=== PATIENT | male | born 1945 | race Caucasian/White ===

== ENCOUNTER 2018-09-29 07:48 | Inpatient (IN) ==
[2018-09-29] MEDS ORDERED: Ondansetron 4 MG/2 ML VIAL IVP ONE (07:52)
[2018-09-29] MEDS ORDERED: *HR* Morphine 2 MG/ML SYRINGE IVP ONE (07:52)
--- NOTE | 2018-09-29 07:58 | Emergency Department Note ---
Disposition Clinical Impression: CVA (cerebral vascular accident), Metastatic cancer, UTI (urinary tract infection), History of bladder cancer, Physical deconditioning Disposition: Admitted As Inpatient Condition: Fair Referrals: NONE,PCP [Primary Care Provider] - Forms: ED Satisfaction Letter Time of Disposition: 09:32 ( will admit) Fall HPI - General Chief Complaint: ED Fall Stated Complaint: fell out of bed Time Seen by Provider: 09/29/18 07:56 Source: EMS, other (care person at [facility]) Mode of arrival: EMS Limitations: physical limitation Nursing Notes Reviewed: Yes Vital Signs Reviewed: Yes - History of Present Illness HPI Narrative: 73-year-old male who was brought to the emergency department by EMS, after susta ining a fall at a [facility]. Patient was last seen normal at 6 AM, and then approximately 6:40 AM was found on the floor. Patient has known history of bladder cancer, and according to persons at [facility], is able to normally ambulate without difficulty. This morning patient was non-ambulatory, unable to speak, and unable to move his upper extremity. Patient appears to have clinically had a stroke. Patient per records is a DNR CC. He has no family. According to caregiver at the [facility], patient does not have this facial swelling, and he appears to have fallen out of bed and hit his oxygen tank, sustaining trauma to his right side of his face. There is marked swelling. Patient according to caregiver has advanced dementia. Over the last couple of weeks he has required more care. Pt Subjective Complaint: fall Onset (ago): Just [employer] Fall From: out of bed Fall Witnessed: no Place Fall Occurred: retirement/SNF Loss of Consciousness: unsure Symptoms Prior to Fall: none Context: other (Patient fell out of bed) Location of injury: head, face Location of injury - extremities: Right: shoulder Severity: moderate Associated symptoms (after fall): Reports: confusion - Related Data Home Medications Medication Instructions Recorded Confirmed Benzonatate [Tessalon] 100 mg PO BID PRN 07/06/17 09/29/18 Cholecalciferol (Vitamin D3) 2,000 unit PO DAILY 07/06/17 09/29/18 [Vitamin D] Cyanocobalamin (B-12) [Vitamin B12] 500 mcg PO DAILY 07/06/17 09/29/18 Docusate [Colace] 100 mg PO BID PRN 07/06/17 09/29/18 Donepezil [Aricept] 10 mg PO HS 07/06/17 09/29/18 Ipratropium/Albuterol Neb [Duoneb] 3 ml IH Q6HR 07/06/17 09/29/18 Perphenazine 4 mg PO BID 07/06/17 09/29/18 Simvastatin [Zocor] 40 mg PO HS 07/06/17 09/29/18 traZODone [TraZODone] 50 mg PO HS 07/06/17 09/29/18 Oxygen 1 each .ROUTE AD 03/01/18 09/29/18 Aspirin [Lo-Dose Aspirin EC] 81 mg PO DAILY 07/03/18 09/29/18 GuaiFENesin/Dextromethorphan 10 ml PO BID PRN 07/03/18 09/29/18 [Pecgen Dmx 125-15 mg/5 ml Liq] Tiotropium [Spiriva] 2 puff IH DAILY 07/03/18 09/29/18 Albuterol Neb [AccuNeb] 0.63 mg IH Q6H PRN 09/29/18 09/29/18 Calcium Carbonate [Antacid] 400 mg PO DAILY 09/29/18 09/29/18 Doxazosin Mesylate [Cardura] 2 mg PO HS 09/29/18 09/29/18 Oxycodone HCl/Acetaminophen 1 each PO Q4-6H PRN 09/29/18 09/29/18 [Percocet 5-325 mg Tablet] guaiFENesin [Guaifenesin] 400 mg PO Q8H PRN 09/29/18 09/29/18 Previous Rx's Medication Instructions Recorded Omeprazole [PriLOSEC] 20 mg PO BIDAC #30 cap 07/18/17 Ondansetron HCl [Zofran] 4 mg PO Q4H PRN #30 tablet 07/18/17 Prochlorperazine Maleate 10 mg PO Q6H PRN #30 tablet 07/18/17 [Compazine] Phenazopyridine [Pyridium] 100 mg PO TID #90 tablet 08/23/17 Ascorbate Calcium [Vitamin C] 1 tab PO DAILY #30 tablet 11/29/17 Ferrous Sulfate [Iron] 1 tab PO DAILY #30 tablet 11/29/17 Allergies Allergy/AdvReac Type Severity Reaction Status Date / Time No Known Allergies Allergy Verified 07/03/18 10:25 Limitations: ROS unobtainable due to patients medical condition (Patient is not able to speak, or follow commands.) Fall PMH - Past Medical History Medical history: Reports: cancer, COPD, dementia, hyperlipidemia, kidney stones, other Psychiatric history: Reports: schizophrenia - Social History Smoking Status: Former smoker Alcohol use: Reports: none Drug use: Reports: none Physical Exam - General Limitations: altered mental status, physical limitation General appearance: other (pt opens his left eye and looks , but not able to speak) - Head Head exam: atraumatic - Eye Eye exam: Present: other (left eye apperas to have drooping) - ENT ENT exam: other (Marked facial swelling localized to the right side of the face, around the temporomandibular joint) - Chest Chest inspection: Present: normal inspection - Respiratory Respiratory exam: Present: normal lung sounds bilaterally - Cardiovascular Cardiovascular exam: Present: regular rate, normal rhythm - Abdominal Exam Abdominal exam: Present: soft, Non-Tender - Extremities Exam Extremities exam: Present: normal inspection - Expanded Lower Extremity Exam Hip/Pelvis exam: Present: normal inspection. Absent: abrasion, deformity, dislocation - Neurological Exam Neurological exam: Present: other (Patient will moan and groan, he is opening up his eye, but difficult to understand) - Skin Skin exam: Present: warm, dry Course Vital Signs Temperature 97.9 F 09/29/18 07:50 Pulse Rate 90 09/29/18 07:50 Respiratory Rate 18 09/29/18 07:50 Blood Pressure 129/98 09/29/18 07:50 O2 Sat by Pulse Oximetry 96 09/29/18 07:50 Temperature 97.9 F 09/29/18 07:50 Pulse Rate 90 09/29/18 09:45 Respiratory Rate 18 09/29/18 09:45 Blood Pressure 137/91 09/29/18 09:45 O2 Sat by Pulse Oximetry 97 09/29/18 09:45 Oxygen Delivery Oxygen Delivery Room Air Fall - Lab Data Lab results reviewed: Yes I reviewed the patient's lab results. Lab results narrative: Elevated WBC count 13,000 urine analysis positive leukocyte and nitrites Result diagrams: 09/29/18 08:19 09/29/18 08:19 Lab Results 09/29/18 09/29/18 09/29/18 Range/Units 08:19 08:19 08:19 WBC 13.1 H (4.3-11.1) K/mcL RBC 3.65 L (4.19-5.50) M/mcL Hgb 11.2 L (12.9-16.9) g/dL Hct 36.4 L (37.5-50.1) % MCV 99.7 (83.0-100.0) fL MCH 30.7 (28.0-33.3) pg MCHC 30.8 L (31.6-35.5) g/dL RDW 13.2 (11.5-14.5) % Plt Count 249 (140-400) K/mcL MPV 11.2 (9.4-12.4) fL Immature Gran % 1.0 (0-4) % Seg Neutrophils % 90.4 % Lymphocytes % 2.4 % Monocytes % 5.9 % Eosinophils % 0.1 % Basophils % 0.2 % Neutrophils # 11.8 H (1.6-8.9) K/mcL Lymphocytes # 0.3 L (0.6-4.6) K/mcL Monocytes # 0.8 (0.0-1.3) K/mcL Eosinophils # 0.0 (0.0-0.6) K/mcL Basophils # 0.0 (0.0-0.2) K/mcL PT 14.2 H (9.4-12.1) Seconds INR 1.3 APTT 24.3 L (26.0-36.0) Seconds Sodium 141 (136-145) mEq/L Potassium 3.7 (3.5-5.1) mEq/L Chloride 97 L (98-107) mEq/L Carbon Dioxide 33 H (23-29) mEq/L BUN 19 (8-23) mg/dL Creatinine 0.93 (0.70-1.30) mg/dL Est GFR ( Amer) > 60 (> 60) Est GFR (Non-Af Amer) > 60 (> 60) BUN/Creatinine Ratio 20 (6-26) Glucose 142 H (70-105) mg/dL Calculated Osmolality 297 (280-300) Lactic Acid (0.5-2.2) mmol/L Calcium 9.0 (8.6-10.3) mg/dL Total Bilirubin 0.3 (0.3-1.0) mg/dL AST 104 H (13-39) Units/L ALT 54 H (7-52) Units/L Alkaline Phosphatase 103 (34-104) Units/L Troponin I (< 0.04) ng/mL Serum Total Protein 7.5 (6.4-8.9) g/dL Albumin 2.9 L (3.5-5.7) g/dL Globulin 4.6 H (2.4-3.5) g/dL Albumin/Globulin Ratio 0.6 L (1.1-2.2) Urine Color (Yellow) Urine Clarity (Clear) Urine pH (5.0-8.0) pH Units Ur Specific [place] (1.010-1.025) Urine Protein (Neg-Trace) mg/dL Urine Glucose (UA) (Normal) mg/dL Urine Ketones (Negative) mg/dL Urine Blood (Negative) Urine Nitrite (Negative) Urine Bilirubin (Negative) Urine Urobilinogen (Normal) mg/dL Ur Leukocyte Esterase (Negative) Urine Microscopic RBC (0-3) per hpf Urine Microscopic WBC (0-3) per hpf Ur Squamous Epith Cells (None-Few) per lpf Urine Bacteria (None-Few) per hpf Granular Casts (None Seen) per lpf 09/29/18 09/29/18 09/29/18 Range/Units 08:19 08:19 09:18 WBC (4.3-11.1) K/mcL RBC (4.19-5.50) M/mcL Hgb (12.9-16.9) g/dL Hct (37.5-50.1) % MCV (83.0-100.0) fL MCH (28.0-33.3) pg MCHC (31.6-35.5) g/dL RDW (11.5-14.5) % Plt Count (140-400) K/mcL MPV (9.4-12.4) fL Immature Gran % (0-4) % Seg Neutrophils % % Lymphocytes % % Monocytes % % Eosinophils % % Basophils % % Neutrophils # (1.6-8.9) K/mcL Lymphocytes # (0.6-4.6) K/mcL Monocytes # (0.0-1.3) K/mcL Eosinophils # (0.0-0.6) K/mcL Basophils # (0.0-0.2) K/mcL PT (9.4-12.1) Seconds INR APTT (26.0-36.0) Seconds Sodium (136-145) mEq/L Potassium (3.5-5.1) mEq/L Chloride (98-107) mEq/L Carbon Dioxide (23-29) mEq/L BUN (8-23) mg/dL Creatinine (0.70-1.30) mg/dL Est GFR ( Amer) (> 60) Est GFR (Non-Af Amer) (> 60) BUN/Creatinine Ratio (6-26) Glucose (70-105) mg/dL Calculated Osmolality (280-300) Lactic Acid 2.0 (0.5-2.2) mmol/L Calcium (8.6-10.3) mg/dL Total Bilirubin (0.3-1.0) mg/dL AST (13-39) Units/L ALT (7-52) Units/L Alkaline Phosphatase (34-104) Units/L Troponin I 0.03 (< 0.04) ng/mL Serum Total Protein (6.4-8.9) g/dL Albumin (3.5-5.7) g/dL Globulin (2.4-3.5) g/dL Albumin/Globulin Ratio (1.1-2.2) Urine Color Red A (Yellow) Urine Clarity Cloudy A (Clear) Urine pH 6.0 (5.0-8.0) pH Units Ur Specific [place] 1.015 (1.010-1.025) Urine Protein >=300 H (Neg-Trace) mg/dL Urine Glucose (UA) Normal (Normal) mg/dL Urine Ketones Negative (Negative) mg/dL Urine Blood Large H (Negative) Urine Nitrite Negative (Negative) Urine Bilirubin Small H (Negative) Urine Urobilinogen Normal (Normal) mg/dL Ur Leukocyte Esterase Small H (Negative) Urine Microscopic RBC 50-100 H (0-3) per hpf Urine Microscopic WBC 50-100 H (0-3) per hpf Ur Squamous Epith Cells Few (None-Few) per lpf Urine Bacteria Many H (None-Few) per hpf Granular Casts Moderate H (None Seen) per lpf - Radiology Data Radiology results reviewed: Yes I reviewed the patient's radiology results. CT of head without contrast, CT of the cervical spine without contrast, CT of the maxillofacial bones without contrast shows no acute abnormality. Chest x- ray shows metastatic disease, and x-ray of the pelvis is consistent with meta static disease. - EKG Data EKG attestation: Yes I reviewed and interpreted this EKG. EKG results narrative: EKG is normal sinus rhythm, rate of 88. EKG shows normal: sinus rhythm Rate: normal Rhythm: NSR [place]/QRS: normal
[2018-09-29 08:25] LABS: Basophils % 0.2 %; Eosinophils % 0.1 %; Hematocrit 36.4 % (37.5-50.1); Hemoglobin 11.2 g/dL (12.9-16.9); Lymphocytes # 0.3 K/mcL (0.6-4.6); Lymphocytes % 2.4 %; Mean Corpuscular HGB Conc 30.8 g/dL (31.6-35.5); Mean Corpuscular Hemoglobin 30.7 pg (28.0-33.3); Mean Corpuscular Volume 99.7 fL (83.0-100.0); Mean Platelet Volume 11.2 fL (9.4-12.4); Monocytes # 0.8 K/mcL (0.0-1.3); Monocytes % 5.9 %; Platelet Count 249 K/mcL (140-400); Red Blood Count 3.65 M/mcL (4.19-5.50); Red Cell Distribution Width 13.2 % (11.5-14.5); Segmented Neutrophils % 90.4 %
[2018-09-29 08:26] LABS: Neutrophils # 11.8 K/mcL (1.6-8.9)
[2018-09-29 08:33] LABS: INR 1.3; Prothrombin Time 14.2 Seconds (9.4-12.1)
[2018-09-29 08:36] LABS: Activated Partial Thrombo Time 24.3 Seconds (26.0-36.0)
[2018-09-29 09:14] LABS: Alanine Aminotransferase 54 Units/L (7-52); Albumin 2.9 g/dL (3.5-5.7); Albumin/Globulin Ratio 0.6 (1.1-2.2); Alkaline Phosphatase 103 Units/L (34-104); Aspartate Amino Transferase 104 Units/L (13-39); BUN/Creatinine Ratio 20 (6-26); Bilirubin,Total 0.3 mg/dL (0.3-1.0); Blood Urea Nitrogen 19 mg/dL (8-23); Carbon Dioxide 33 mEq/L (23-29); Chloride 97 mEq/L (98-107); Globulin 4.6 g/dL (2.4-3.5); Glucose 142 mg/dL (70-105); Osmolality,Calculated 297 (280-300); Potassium 3.7 mEq/L (3.5-5.1); Sodium 141 mEq/L (136-145); Total Protein 7.5 g/dL (6.4-8.9); eGFR For Non-African Americans > 60 (> 60)
[2018-09-29] MEDS ORDERED: Naloxone 0.4 MG/ML INJ IVP PRN ×2 (09:28→10:01)
[2018-09-29 09:37] LABS: Bilirubin,Urine Small (Negative); Blood,Urine Large (Negative); Clarity,Urine Cloudy (Clear); Color,Urine Red (Yellow); Glucose,Urine (UA) Normal (Normal); Ketones,Urine Negative (Negative); Specific Gravity,Urine 1.015 (1.010-1.025)
[2018-09-29 09:38] LABS: Leukocyte Esterase,Urine Small (Negative); Nitrite,Urine Negative (Negative); Protein,Urine >=300 mg/dL (Neg-Trace); Urobilinogen,Urine Normal (Normal)
[2018-09-29 09:42] LABS: Bacteria,Urine Many per hpf (None-Few); Granular Casts,Urine Moderate per lpf (None Seen); RBC,Urine 50-100 per hpf (0-3); Squamous Epithelial Cell,Urine Few per lpf (None-Few); WBC,Urine 50-100 per hpf (0-3)
[2018-09-29] MEDS ORDERED: GuaiFENesin Liq 200 MG/10 ML UDC PO PRN (10:01)
[2018-09-29] MEDS ORDERED: NON-FORMULARY MEDICATION 1 EACH EACH (Oxygen [Oxygen] 1 EACH) SCH (10:01)
[2018-09-29] MEDS ORDERED: Benzonatate 100 MG CAPSULE PO PRN (10:01)
[2018-09-29] MEDS ORDERED: *HR* OxyCODONE/APAP 5/325 TABLET PO PRN (10:01)
[2018-09-29] MEDS ORDERED: Albuterol 2.5 MG/3 ML NEBULIZER IH PRN (10:01)
[2018-09-29] MEDS ORDERED: Ondansetron ODT 4 MG TAB.RAPDIS PO PRN (10:01)
--- NOTE | 2018-09-29 15:35 | Internal Med History&Physical ---
Date of Encounter: 09/29/18 Time of Encounter: 14:45 Assessment and Plan (1) Acute focal neurological deficit Current visit: Yes Status: Acute New onset right facial weakness with significant right arm or leg involvement. Left arm weakness. MRI of brain and shoulders will be done to further evaluate. (2) Elevated transaminase level Current visit: Yes Status: Acute Duration unknown. Not present on November 2017 labs. Continue to monitor. (3) Anemia Current visit: Yes Status: Acute Present on most labs since January 2017. Anemia testing will be done. Qualifiers: Anemia type: unspecified type Qualified Code(s): D64.9 - Anemia, unspecified (4) Bladder cancer Current visit: No Status: Acute No further workup or treatment plan. Qualifiers: Bladder location: anterior wall Qualified Code(s): C67.3 - Malignant neoplasm of anterior wall of bladder (5) Fall Current visit: No Status: Acute Etiology unknown. MRI of head will be done as per above. Qualifiers: Encounter type: initial encounter Qualified Code(s): W19.XXXA - Unspecified fall, initial encounter (6) DM type 2 (diabetes mellitus, type 2) Current visit: Yes Status: Acute History of borderline DM 2 per halfway caregiver. Hemoglobin A1c will be checked. Qualifiers: Diabetes mellitus space officer insulin use: without custodial use Diabetes mellitus complication status: without complication Qualified Code(s): E11.9 - Type 2 diabetes mellitus without complications (7) Conjunctivitis Current visit: Yes Status: Acute TobraDex eyedrops will be ordered. Qualifiers: Conjunctivitis type: unspecified Laterality: bilateral Qualified Code(s): H10.9 - Unspecified conjunctivitis (8) Neutrophilic leukocytosis Current visit: Yes Status: Acute Suspect UTI. Urine culture will be sent and Rocephin will be started. Internal Medicine - H&P: HPI Chief complaint: Fall Admitted From: Emergency Dept Plans for Post Hospital Care: Home History of present illness: Mr. Pastrana is a 73 year old male who was sent to emergency room after staff at the halfway found him lying prone on the floor with right face down approximately 0630 today. He had been last seen in bed at approximately 0345. The fall was unwitnessed. He cannot give any reliable history. He was brought to emergency room and [facility]. He was on hospice because of metastatic bladder cancer. Hospice was revoked and he was evaluated and admitted to [facility] floor for ongoing care needs. He has diagnoses of dementia and schizophrenia and cannot give reliable history. He answers a few questions with short answers. He does not know his age, location, or reason for being at the hospital. He has no known history of strokes or seizures. He has had occasional transient "drooping" of his left face observed at the halfway. He has been evaluated for this by staff at the [place] according to his halfway caregiver. Head CT in emergency room showed periventricular white matter microvascular ischemic changes and a small old right basal ganglia lacunar infarct. Past Med Surg Social Fam HX - Past Medical History Medical history: cancer, COPD, dementia, hyperlipidemia, kidney stones, other Additional medical history: peripheral vascular disease. prostatic hypertrophy. cholelithiasis. dysphagia Psychiatric history: schizophrenia - Past Surgical History Additional surgical history: port. bladder - Social History Smoking Status: Former smoker Smokeless Tobacco Status: No Alcohol use: none Drug use: none - Family History Mother History Unknown: Yes Internal Medicine - H&P: Meds Benzonatate [Tessalon] 100 mg PO BID PRN 07/06/17 [History] Cholecalciferol (Vitamin D3) [Vitamin D] 2,000 unit PO DAILY 07/06/17 [History] Cyanocobalamin (B-12) [Vitamin B12] 500 mcg PO DAILY 07/06/17 [History] Docusate [Colace] 100 mg PO BID PRN 07/06/17 [History] Donepezil [Aricept] 10 mg PO HS 07/06/17 [History] Ipratropium/Albuterol Neb [Duoneb] 3 ml IH Q6HR 07/06/17 [History] Perphenazine 4 mg PO BID 07/06/17 [History] Simvastatin [Zocor] 40 mg PO HS 07/06/17 [History] traZODone [TraZODone] 50 mg PO HS 07/06/17 [History] Omeprazole [PriLOSEC] 20 mg PO BIDAC #30 cap 07/18/17 [Rx] Ondansetron HCl [Zofran] 4 mg PO Q4H PRN #30 tablet 07/18/17 [Rx] Prochlorperazine Maleate [Compazine] 10 mg PO Q6H PRN #30 tablet 07/18/17 [Rx] Phenazopyridine [Pyridium] 100 mg PO TID #90 tablet 08/23/17 [Rx] Ascorbate Calcium [Vitamin C] 1 tab PO DAILY #30 tablet 11/29/17 [Rx] Ferrous Sulfate [Iron] 1 tab PO DAILY #30 tablet 11/29/17 [Rx] Oxygen 1 each .ROUTE AD 03/01/18 [History] Aspirin [Lo-Dose Aspirin EC] 81 mg PO DAILY 07/03/18 [History] GuaiFENesin/Dextromethorphan [Pecgen Dmx 125-15 mg/5 ml Liq] 10 ml PO BID PRN 07/03/18 [History] Tiotropium [Spiriva] 2 puff IH DAILY 07/03/18 [History] Albuterol Neb [Proventil Neb] 2.5 mg IH Q6H PRN 09/29/18 [History] Calcium Carbonate [Antacid] 400 mg PO DAILY 09/29/18 [History] Doxazosin Mesylate [Cardura] 2 mg PO HS 09/29/18 [History] Oxycodone HCl/Acetaminophen [Percocet 5-325 mg Tablet] 1 each PO Q4-6H PRN 09/29/18 [History] guaiFENesin [Guaifenesin] 400 mg PO Q8H PRN 09/29/18 [History] Allergy/AdvReac Type Severity Reaction Status Date / Time No Known Allergies Allergy Verified 07/03/18 10:25 All Systems PM: A 10-system review of systems was performed and is negative for pertinent findings except as documented above in the HPI. Review of systems: Review of systems is obtained from old records and a caregiver at the halfway. Gen.: His weight has decreased from 84.2 kg on 02/10/2017 to 74.559 kg at present. Cardiovascular: He has history of [place] and heart failure. There is no known DVT or pulmonary embolus. Respiratory: He has diagnoses of COPD. He has not smoked in several years. He does not use home oxygen. GI: There is no known disorder of his liver gallbladder or exocrine pancreas : He was diagnosed with bladder cancer in 2016. He received chemotherapy July to October 2017. He was found later 2017 to have pulmonary metastases. He was placed on hospice approximately July 2018. He has no known disorders of his kidneys or prostate otherwise. Neurologic: As per history of present illness Endocrine: He has borderline diabetes. There is no known thyroid disease or hyperlipidemia Hematology/oncology: He had bladder cancer as per above. He has anemia. Psychiatric: He has diagnosis of schizophrenia. [place] skeletal: He has no significant DJD and no known gout. - Constitutional Vitals: Temp Pulse Resp BP Pulse Ox 98.9 F 107 20 109/78 93 09/29/18 14:04 09/29/18 14:37 09/29/18 14:04 09/29/18 14:37 09/29/18 14:37 Exam: Gen.: He is a well-developed well-nourished male lying in bed who appears in no significant distress HEENT: Head shows noticeable swelling of his right face without obvious contusion/laceration. Eyes: He has bilateral conjunctival erythema with slight mucopurulent drainage. EOMI. Mouth: Mucosa is moist. Neck: There is no thyromegaly or adenopathy noted. Heart: Regular without murmurs gallops or ectopics Lungs: No wheezes or crackles are heard. Abdomen: Soft and nontender. No masses or guarding are noted. Extremities: There is no cyanosis edema or clubbing noted. Dorsalis pedis and posttibial pulses are trace palpable bilaterally. Neurologic: Mental status: He answers a few questions but cannot give reliable significant past medical history. Cranial nerves: The right forehead shows minimal movement on upward gaze. The left forehead has more visible movement. He has significant flattening of right nasolabial fold with right facial droop and superimposed edema. Tongue protrudes midline. EOMI. Motor: He cannot outstretch or pronate his left arm well. The right arm pronates in outstretch position satisfactorily. He withdraws his feet equally well to plantar stimulation. Ankle flexion and extension strength against resistance is 2 over 2 bilaterally symmetric. Cerebellar: Finger to nose is intact with the right hand. He does not attempt with the left hand. Skin: Warm and dry Internal Med - H&P Results - Labs CBC & Chem 7: 09/29/18 08:19 09/29/18 08:19 Labs: Short CBC 09/29/18 Range/Units 08: WBC 13.1 H (4.3-11.1) K/mcL Hgb 11.2 L (12.9-16.9) g/dL Hct 36.4 L (37.5-50.1) % Plt Count 249 (140-400) K/mcL Neutrophils # 11.8 H (1.6-8.9) K/mcL BMP 09/29/18 08:19 Sodium 141 Potassium 3.7 Chloride 97 L Carbon Dioxide 33 H BUN 19 Creatinine 0.93 Glucose 142 H Calcium 9.0 Cardiac Enzymes 09/29/18 Range/Units 08:19 Troponin I 0.03 (< 0.04) ng/mL Liver Function 09/29/18 Range/Units 08:19 Total Bilirubin 0.3 (0.3-1.0) mg/dL AST 104 H (13-39) Units/L ALT 54 H (7-52) Units/L Alkaline Phosphatase 103 (34-104) Units/L Albumin 2.9 L (3.5-5.7) g/dL Urine 09/29/18 Range/Units 09:18 Urine Color Red A (Yellow) Urine Clarity Cloudy A (Clear) Urine pH 6.0 (5.0-8.0) pH Units Ur Specific [place] 1.015 (1.010-1.025) Urine Protein >=300 H (Neg-Trace) mg/dL Urine Glucose (UA) Normal (Normal) mg/dL - Impressions ITS Impressions Cervical Spine CT 09/29/18 07:52 IMPRESSION: No acute intracranial abnormality. Right lateral facial soft tissue swelling. No acute traumatic injury of the facial bones. No acute abnormality in the cervical spine. Lung nodules measuring up to 6 mm at the lung apices. Follow-up recommendation is listed below. RECOMMENDATIONS: Fleischner Society guidelines for follow-up and management of incidentally detected pulmonary nodules: Multiple Solid Nodules: Nodule size equals 6-8 mm In a low-risk patient, CT at 3-6 months, then consider CT at 18-24 months. In a high-risk patient, CT at 3-6 months, then CT at 18-24 months. - Low risk patients include individuals with minimal or absent history of smoking and other known risk factors. - High risk patients include individuals with a history or smoking or known risk factors. Radiology 2017 http://pubs.rsna.org/doi/full/10.1148/radiol.[email or web address] D/ / Rishabh Llamas MD / Rishabh Llamas MD Interpreting Provider: Rishabh Llamas MD Chest X-Ray 09/29/18 07:52 IMPRESSION: Normal x-ray of the pelvis. Multiple rounded masses which appear to have increased in size from prior CT scan done June 15, 2018 consistent with diffuse metastatic disease. D/ / Rolando Bennett MD / Rolando Bennett MD Interpreting Provider: Rolando Bennett MD Head CT 09/29/18 07:52 IMPRESSION: No acute intracranial abnormality. Right lateral facial soft tissue swelling. No acute traumatic injury of the facial bones. No acute abnormality in the cervical spine. Lung nodules measuring up to 6 mm at the lung apices. Follow-up recommendation is listed below. RECOMMENDATIONS: Fleischner Society guidelines for follow-up and management of incidentally detected pulmonary nodules: Multiple Solid Nodules: Nodule size equals 6-8 mm In a low-risk patient, CT at 3-6 months, then consider CT at 18-24 months. In a high-risk patient, CT at 3-6 months, then CT at 18-24 months. - Low risk patients include individuals with minimal or absent history of smoking and other known risk factors. - High risk patients include individuals with a history or smoking or known risk factors. Radiology 2017 http://pubs.rsna.org/doi/full/10.1148/radiol.[email or web address] D/ / Rishabh Llamas MD / Rishabh Llamas MD Interpreting Provider: Rishabh Llamas MD Pelvis X-Ray 09/29/18 07:52 IMPRESSION: Normal x-ray of the pelvis. Multiple rounded masses which appear to have increased in size from prior CT scan done June 15, 2018 consistent with diffuse metastatic disease. D/ / Rolando Bennett MD / Rolando Bennett MD Interpreting Provider: Rolando Bennett MD Face CT 09/29/18 08:03 IMPRESSION: No acute intracranial abnormality. Right lateral facial soft tissue swelling. No acute traumatic injury of the facial bones. No acute abnormality in the cervical spine. Lung nodules measuring up to 6 mm at the lung apices. Follow-up recommendation is listed below. RECOMMENDATIONS: Fleischner Society guidelines for follow-up and management of incidentally detected pulmonary nodules: Multiple Solid Nodules: Nodule size equals 6-8 mm In a low-risk patient, CT at 3-6 months, then consider CT at 18-24 months. In a high-risk patient, CT at 3-6 months, then CT at 18-24 months. - Low risk patients include individuals with minimal or absent history of smoking and other known risk factors. - High risk patients include individuals with a history or smoking or known risk factors. Radiology 2017 http://pubs.rsna.org/doi/full/10.1148/radiol.[email or web address] D/ / Rishabh Llamas MD / Rishabh Llamas MD Interpreting Provider: Rishabh Llamas MD
[2018-09-29] MEDS: Ipratropium/Albuterol Neb 3 ML IH SCH ×2 (16:04→22:25)
[2018-09-29] MEDS: cefTRIAXone 1,000 MG in Water for inj. (sterile) 20 ML 10 ML IVP SCH (16:54)
[2018-09-29] MEDS: Tobramycin/Dex Opth DROPS 2.5 ML BOTTLE LEFT EYE SCH (16:57)
[2018-09-29] MEDS: Tobramycin/Dex Opth DROPS 2.5 ML BOTTLE RIGHT EYE SCH (16:57)
[2018-09-29] MEDS: Lactobacillus 1 EACH CAP.SPRINK PO SCH (20:11)
[2018-09-29] MEDS: Perphenazine 2 MG TABLET PO SCH ×2 (20:12→20:24)
[2018-09-29] MEDS: Clotrimazole 1% CRM 15 GM TUBE TP SCH (20:12)
[2018-09-29] MEDS: traZODone 50 MG TABLET PO SCH (20:12)
[2018-09-30] MEDS: Tobramycin/Dex Opth DROPS 2.5 ML BOTTLE LEFT EYE SCH ×4 (00:31→23:57)
[2018-09-30] MEDS: Tobramycin/Dex Opth DROPS 2.5 ML BOTTLE RIGHT EYE SCH ×4 (00:31→23:57)
[2018-09-30] MEDS: Ipratropium/Albuterol Neb 3 ML IH SCH ×4 (04:45→22:01)
[2018-09-30 05:42] LABS: Basophils % 0.3 %; Eosinophils % 0.1 %; Hematocrit 40.2 % (37.5-50.1); Immature Granulocytes % 0.7 % (0-4); Lymphocytes # 0.6 K/mcL (0.6-4.6); Lymphocytes % 4.6 %; Mean Corpuscular HGB Conc 29.9 g/dL (31.6-35.5); Mean Corpuscular Hemoglobin 30.1 pg (28.0-33.3); Mean Corpuscular Volume 100.8 fL (83.0-100.0); Mean Platelet Volume 11.7 fL (9.4-12.4); Monocytes % 8.1 %; Neutrophils # 10.8 K/mcL (1.6-8.9); Platelet Count 272 K/mcL (140-400); Red Blood Count 3.99 M/mcL (4.19-5.50); Red Cell Distribution Width 13.5 % (11.5-14.5); Segmented Neutrophils % 86.2 %
[2018-09-30 06:10] LABS: Alanine Aminotransferase 68 Units/L (7-52); Albumin 2.8 g/dL (3.5-5.7); Albumin/Globulin Ratio 0.6 (1.1-2.2); Alkaline Phosphatase 109 Units/L (34-104); Aspartate Amino Transferase 133 Units/L (13-39); BUN/Creatinine Ratio 19 (6-26); Bilirubin,Total 0.3 mg/dL (0.3-1.0); Blood Urea Nitrogen 21 mg/dL (8-23); Calcium 9.1 mg/dL (8.6-10.3); Carbon Dioxide 35 mEq/L (23-29); Chloride 100 mEq/L (98-107); Globulin 4.5 g/dL (2.4-3.5); Glucose 137 mg/dL (70-105); Osmolality,Calculated 301 (280-300); Potassium 4.1 mEq/L (3.5-5.1); Sodium 143 mEq/L (136-145); Total Protein 7.3 g/dL (6.4-8.9); eGFR For Non-African Americans > 60 (> 60)
[2018-09-30] MEDS: Lactobacillus 1 EACH CAP.SPRINK PO SCH ×2 (09:03→20:50)
[2018-09-30] MEDS: Cyanocobalamin (B-12) 1,000 MCG TABLET PO SCH (09:04)
[2018-09-30] MEDS: Perphenazine 2 MG TABLET PO SCH ×2 (09:06→20:48)
[2018-09-30] MEDS: Cholecalciferol (D-3) 1,000 UNIT TABLET PO SCH (09:09)
[2018-09-30] MEDS: Aspirin Enteric Coated 81 MG Tablet PO SCH (09:12)
[2018-09-30] MEDS: Ascorbic Acid 500 MG TABLET PO SCH (09:12)
[2018-09-30 09:29] LABS: % Iron Saturation 9 % (20-55); Iron 19 mcg/dL (65-175); Transferrin 149 mg/dL (203-362)
[2018-09-30 09:37] LABS: Estimated Average Glucose 148 mg/dl; Hemoglobin A1C 6.8 %
[2018-09-30 09:47] LABS: Ferritin 1266 ng/mL (20-250)
[2018-09-30] MEDS: Clotrimazole 1% CRM 15 GM TUBE TP SCH ×2 (09:47→20:54)
[2018-09-30 09:53] LABS: Folate 5.4 ng/mL (3.0-16.0)
[2018-09-30] MEDS: Tiotropium 18 MCG inhalation IH SCH (10:02)
--- NOTE | 2018-09-30 10:06 | Internal Med Progress Note ---
Date of Encounter: 09/30/18 Time of Encounter: 09:55 - Assessment and plan (1) Acute focal neurological deficit Current Visit: Yes Status: Acute Assessment and plan: September 30. Unchanged right facial weakness with left arm weakness. MRI of brain and shoulders has been ordered and will be done 10/01/2018. (2) Elevated transaminase level Current Visit: Yes Status: Acute Assessment and plan: September 30. Slight increase in LFTs noted. (3) Anemia Current Visit: Yes Status: Acute Assessment and plan: September 30. Hemoglobin has increased to 12.0. Question if hemoconcentration effect. Anemia testing shows iron 19, transferrin saturation 9%, transferrin 149, ferritin 1266, B12 635, and folate 5.4. Qualifiers: Anemia type: unspecified type Qualified Code(s): D64.9 - Anemia, unspe cified (4) Bladder cancer Current Visit: No Status: Acute Assessment and plan: September 30. No further workup or treatment planned Qualifiers: Bladder location: anterior wall Qualified Code(s): C67.3 - Malignant neoplasm of anterior wall of bladder (5) Fall Current Visit: No Status: Acute Assessment and plan: September 30. MRI of head pending. Qualifiers: Encounter type: initial encounter Qualified Code(s): W19.XXXA - Unspecified fall, initial encounter (6) DM type 2 (diabetes mellitus, type 2) Current Visit: Yes Status: Acute Assessment and plan: September 30. Hemoglobin A1c 6.8%. Continue Accu-Cheks with SSI. 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 Improved. Continue TobraDex. Qualifiers: Conjunctivitis type: unspecified Laterality: bilateral Qualified Code(s): H10.9 - Unspecified conjunctivitis (8) Neutrophilic leukocytosis Current Visit: Yes Status: Acute Assessment and plan: September 30. WBC decreased and left shift on differential lessened. Continue Rocephin and lactobacillus. - Subjective Interval history: September 30. No new problems have arisen. - Constitutional Vitals: Temp Pulse Resp BP Pulse Ox 98.9 F 117 26 121/76 95 09/30/18 06:21 09/30/18 06:21 09/30/18 06:21 09/30/18 06:21 09/30/18 06:21 Exam: He is lying in bed and appears in no acute distress. The right facial edema and droop appear unchanged from yesterday. 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 The right arm performs finger to nose testing accurately. He answers a few questions with short answers. I reviewed his medications and lab results. Internal Medicine: Result - Labs CBC & Chem 7: 09/30/18 05:00 09/30/18 05:00 Labs: Short CBC 09/30/18 Range/Units 05:00 WBC 12.5 H (4.3-11.1) K/mcL Hgb 12.0 L (12.9-16.9) g/dL Hct 40.2 (37.5-50.1) % Plt Count 272 (140-400) K/mcL Neutrophils # 10.8 H (1.6-8.9) K/mcL BMP 09/30/18 05:00 Sodium 143 Potassium 4.1 Chloride 100 Carbon Dioxide 35 H BUN 21 Creatinine 1.08 Glucose 137 H Calcium 9.1 Liver Function 09/30/18 Range/Units 05:00 Total Bilirubin 0.3 (0.3-1.0) mg/dL AST 133 H (13-39) Units/L ALT 68 H (7-52) Units/L Alkaline Phosphatase 109 H (34-104) Units/L Albumin 2.8 L (3.5-5.7) g/dL - ABG Interpretation ABG results: PT/INR, D-dimer PT 14.2 Seconds (9.4-12.1) H 09/29/18 08:19 - Impressions Impressions Cervical Spine CT 09/29/18 07:52 IMPRESSION: No acute intracranial abnormality. Right lateral facial soft tissue swelling. No acute traumatic injury of the facial bones. No acute abnormality in the cervical spine. Lung nodules measuring up to 6 mm at the lung apices. Follow-up recommendation is listed below. RECOMMENDATIONS: Fleischner Society guidelines for follow-up and management of incidentally detected pulmonary nodules: Multiple Solid Nodules: Nodule size equals 6-8 mm In a low-risk patient, CT at 3-6 months, then consider CT at 18-24 months. In a high-risk patient, CT at 3-6 months, then CT at 18-24 months. - Low risk patients include individuals with minimal or absent history of smoking and other known risk factors. - High risk patients include individuals with a history or smoking or known risk factors. Radiology 2017 http://pubs.rsna.org/doi/full/10.1148/radiol.[email or web address] D/ / Rishabh Llamas MD / Rishabh Llamas MD Interpreting Provider: Rishabh Llamas MD Head CT 09/29/18 07:52 IMPRESSION: No acute intracranial abnormality. Right lateral facial soft tissue swelling. No acute traumatic injury of the facial bones. No acute abnormality in the cervical spine. Lung nodules measuring up to 6 mm at the lung apices. Follow-up recommendation is listed below. RECOMMENDATIONS: Fleischner Society guidelines for follow-up and management of incidentally detected pulmonary nodules: Multiple Solid Nodules: Nodule size equals 6-8 mm In a low-risk patient, CT at 3-6 months, then consider CT at 18-24 months. In a high-risk patient, CT at 3-6 months, then CT at 18-24 months. - Low risk patients include individuals with minimal or absent history of smoking and other known risk factors. - High risk patients include individuals with a history or smoking or known risk factors. Radiology 2017 http://pubs.rsna.org/doi/full/10.1148/radiol.3123182986 D/ / Rishabh Llamas MD / Rishabh Llamas MD Interpreting Provider: Rishabh Llamas MD Face CT 09/29/18 08:03 IMPRESSION: No acute intracranial abnormality. Right lateral facial soft tissue swelling. No acute traumatic injury of the facial bones. No acute abnormality in the cervical spine. Lung nodules measuring up to 6 mm at the lung apices. Follow-up recommendation is listed below. RECOMMENDATIONS: Fleischner Society guidelines for follow-up and management of incidentally detected pulmonary nodules: Multiple Solid Nodules: Nodule size equals 6-8 mm In a low-risk patient, CT at 3-6 months, then consider CT at 18-24 months. In a high-risk patient, CT at 3-6 months, then CT at 18-24 months. - Low risk patients include individuals with minimal or absent history of smoking and other known risk factors. - High risk patients include individuals with a history or smoking or known risk factors. Radiology 2017 http://pubs.rsna.org/doi/full/10.1148/radiol.2462768792 D/ / Rishabh Llamas MD / Rishabh Llamas MD Interpreting Provider: Rishabh Llamas MD Consult Discharge Plan - Plan Referrals: NONE,PCP [Primary Care Provider] - 1 week
[2018-09-30 14:45] LABS: Clarity,Urine Cloudy (Clear); Color,Urine Amber (Yellow)
[2018-09-30 14:54] LABS: Bacteria,Urine Few per hpf (None-Few); RBC,Urine 50-100 per hpf (0-3); Squamous Epithelial Cell,Urine Few per lpf (None-Few); Yeast,Urine Few per hpf (None Seen)
[2018-09-30] MEDS: cefTRIAXone 1,000 MG in Water for inj. (sterile) 20 ML 10 ML IVP SCH (16:05)
[2018-09-30] MEDS: traZODone 50 MG TABLET PO SCH (20:43)
[2018-10-01] MEDS: Ipratropium/Albuterol Neb 3 ML IH SCH ×4 (04:50→22:15)
[2018-10-01] MEDS: Tobramycin/Dex Opth DROPS 2.5 ML BOTTLE LEFT EYE SCH ×2 (09:00→17:28)
[2018-10-01] MEDS: Tobramycin/Dex Opth DROPS 2.5 ML BOTTLE RIGHT EYE SCH ×2 (09:00→17:28)
[2018-10-01] MEDS: Lactobacillus 1 EACH CAP.SPRINK PO SCH ×2 (09:01→20:02)
[2018-10-01] MEDS: Cyanocobalamin (B-12) 1,000 MCG TABLET PO SCH (09:01)
[2018-10-01] MEDS: Aspirin Enteric Coated 81 MG Tablet PO SCH (09:01)
[2018-10-01] MEDS: Perphenazine 2 MG TABLET PO SCH ×2 (09:01→20:02)
[2018-10-01] MEDS: Ascorbic Acid 500 MG TABLET PO SCH (09:01)
[2018-10-01] MEDS: Clotrimazole 1% CRM 15 GM TUBE TP SCH ×2 (09:02→22:25)
[2018-10-01] MEDS: Cholecalciferol (D-3) 1,000 UNIT TABLET PO SCH (09:02)
[2018-10-01] MEDS: Tiotropium 18 MCG inhalation IH SCH (09:18)
--- NOTE | 2018-10-01 10:12 | Electrocardiograph Report ---
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
--- NOTE | 2018-10-01 15:49 | Internal Med Progress Note ---
Date of Encounter: 10/01/18 Time of Encounter: 15:40 - Assessment and plan (1) Acute focal neurological deficit Current Visit: Yes Status: Acute Assessment and plan: September 30. Unchanged right facial weakness with left arm weakness. MRI of brain and shoulders has been ordered and will be done 10/01/2018. October 01. Brain MRI showed lesions in the posterior left marj, right frontal area, and periventricular white matter in both left and right frontal and parietal lobes. These were felt most likely due to metastatic lesions and less likely acute infarcts. PT and OT evaluations will be done (2) Elevated transaminase level Current Visit: Yes Status: Acute Assessment and plan: September 30. Slight increase in LFTs noted. October 01. Recheck labs in a.m. (3) Anemia Current Visit: Yes Status: Acute Assessment and plan: September 30. Hemoglobin has increased to 12.0. Question if hemoconcentration effect. Anemia testing shows iron 19, transferrin saturation 9%, transferrin 149, ferritin 1266, B12 635, and folate 5.4. October 01. Recheck labs in a.m. Qualifiers: Anemia type: unspecified type Qualified Code(s): D64.9 - Anemia, unspecified (4) Bladder cancer Current Visit: No Status: Acute Assessment and plan: September 30. No further workup or treatment planned Qualifiers: Bladder location: anterior wall Qualified Code(s): C67.3 - Malignant neoplasm of anterior wall of bladder (5) Fall Current Visit: No Status: Acute Assessment and plan: September 30. MRI of head pending. October 01. Brain MRI lesions as per above. There is evidence of left rotator cuff tearing. PT and OT evaluations will be done. Qualifiers: Encounter type: initial encounter Qualified Code(s): W19.XXXA - Unspecified fall, initial encounter (6) DM type 2 (diabetes mellitus, type 2) Current Visit: Yes Status: Acute Assessment and plan: September 30. Hemoglobin A1c 6.8%. Continue Accu-Cheks with SSI. 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 Improved. Continue TobraDex. October 01. Further improved. Continue TobraDex. Qualifiers: Conjunctivitis type: unspecified Laterality: bilateral Qualified Code(s): H10.9 - Unspecified conjunctivitis (8) Neutrophilic leukocytosis Current Visit: Yes Status: Acute Assessment and plan: September 30. WBC decreased and left shift on differential lessened. Continue Rocephin and lactobacillus. October 01. Recheck labs in a.m. - Subjective Interval history: September 30. No new problems have arisen. October 01. He has no new complaints. - Constitutional Vitals: Temp Pulse Resp BP Pulse Ox 99.1 F 110 18 115/70 92 10/01/18 07:25 10/01/18 07:25 10/01/18 09:15 10/01/18 07:25 10/01/18 13:45 Exam: He is resting comfortably in the bed. There is slight decrease in the amount of right facial edema. There is slightly less drooping of the right face. He answers questions with one-word answers and/or nods appropriately. I reviewed his medications, lab results, and MRI reports. Internal Medicine: Result - Labs CBC & Chem 7: 09/30/18 05:00 09/30/18 05:00 - ABG Interpretation ABG results: PT/INR, D-dimer PT 14.2 Seconds (9.4-12.1) H 09/29/18 08:19 - Impressions Impressions KUB X-Ray 10/01/18 08:09 IMPRESSION: 1. Nonspecific, nonobstructive bowel gas pattern. 2. No radiopaque foreign body identified. D/ / Hakeem Henderson MD / Hakeem Henderson MD Interpreting Provider: Hakeem Henderson MD Brain MRI 10/01/18 15:23 IMPRESSION: There are several small punctate areas of restricted diffusion of various intensity throughout the brain as discussed above. Given the distribution and differences in intensity, concern is for possible metastatic disease. Areas of different stages of infarcts are in the differential, but felt to be less likely. Postcontrast images are suggested to further evaluate. Cerebral atrophy. Mild chronic small vessel ischemic disease. D/ /01/2018 13:31:54 Ana María Hemphill MD / [facility]old Interpreting Provider: Ana María Hemphill MD Shoulder MRI 10/01/18 15:23 IMPRESSION: 1. Image quality graded secondary to motion artifact. 2. Interstitial tearing of the infraspinatus tendon which is superimposed on [id number] supraspinatus and infraspinatus tendinosis. 3. Mild subscapularis tendinosis. 4. Intramuscular edema involving the supraspinatus, deltoid, and trapezius suggesting muscular strains. 5. Mild glenohumeral and mild acromioclavicular osteoarthritis. D/ / Walter Streeter MD / Walter Streeter MD Interpreting Provider: Walter Streeter MD Shoulder MRI 10/01/18 15:23 IMPRESSION: Low-grade strain/contusion to the deltoid along with mild overlying subcutaneous edema. Mild tendinosis of the supraspinatus tendon. Severe fatty atrophy of supraspinatus and infraspinatus muscles and mild to moderate fatty atrophy of teres minor muscle. Mild degenerative changes to the AC joint along with sequela of prior remote injury to the AC joint region as above. Mild narrowing of acromiohumeral interval. Findings could potentially be contributing to impingement symptoms in the appropriate clinical setting. D/ / 10/01/2018 13:28:29 Jasmeet Castellano MD / [facility] Interpreting Provider: Jasmeet Castellano MD Consult Discharge Plan - Plan Referrals: NONE,PCP [Primary Care Provider] - 1 week
[2018-10-01] MEDS: cefTRIAXone 1,000 MG in Water for inj. (sterile) 20 ML 10 ML IVP SCH (16:35)
[2018-10-01] MEDS: traZODone 50 MG TABLET PO SCH (20:02)
[2018-10-02] MEDS: Tobramycin/Dex Opth DROPS 2.5 ML BOTTLE LEFT EYE SCH ×2 (01:35→09:15)
[2018-10-02] MEDS: Tobramycin/Dex Opth DROPS 2.5 ML BOTTLE RIGHT EYE SCH ×2 (01:36→09:15)
[2018-10-02] MEDS: Ipratropium/Albuterol Neb 3 ML IH SCH ×2 (04:21→10:37)
[2018-10-02 06:09] LABS: Basophils % 0.3 %; Eosinophils # 0.1 K/mcL (0.0-0.6); Eosinophils % 0.9 %; Hematocrit 33.7 % (37.5-50.1); Immature Granulocytes % 1.2 % (0-4); Lymphocytes # 0.5 K/mcL (0.6-4.6); Lymphocytes % 5.8 %; Mean Corpuscular HGB Conc 29.7 g/dL (31.6-35.5); Mean Corpuscular Hemoglobin 30.2 pg (28.0-33.3); Mean Corpuscular Volume 101.8 fL (83.0-100.0); Mean Platelet Volume 11.4 fL (9.4-12.4); Monocytes # 0.7 K/mcL (0.0-1.3); Monocytes % 8.6 %; Neutrophils # 7.2 K/mcL (1.6-8.9); Platelet Count 203 K/mcL (140-400); Red Blood Count 3.31 M/mcL (4.19-5.50); Red Cell Distribution Width 13.8 % (11.5-14.5); Segmented Neutrophils % 83.2 %
[2018-10-02 06:42] LABS: Alanine Aminotransferase 75 Units/L (7-52); Albumin 2.5 g/dL (3.5-5.7); Albumin/Globulin Ratio 0.6 (1.1-2.2); Alkaline Phosphatase 95 Units/L (34-104); Aspartate Amino Transferase 86 Units/L (13-39); BUN/Creatinine Ratio 20 (6-26); Bilirubin,Total 0.3 mg/dL (0.3-1.0); Blood Urea Nitrogen 15 mg/dL (8-23); Calcium 8.5 mg/dL (8.6-10.3); Carbon Dioxide 33 mEq/L (23-29); Chloride 98 mEq/L (98-107); Globulin 3.9 g/dL (2.4-3.5); Glucose 127 mg/dL (70-105); Magnesium 2.1 mg/dL (1.6-2.6); Osmolality,Calculated 290 (280-300); Potassium 3.9 mEq/L (3.5-5.1); Sodium 139 mEq/L (136-145); Total Protein 6.4 g/dL (6.4-8.9); eGFR For Non-African Americans > 60 (> 60)
[2018-10-02] MEDS: Lactobacillus 1 EACH CAP.SPRINK PO SCH (09:03)
[2018-10-02] MEDS: Aspirin Enteric Coated 81 MG Tablet PO SCH (09:03)
[2018-10-02] MEDS: Clotrimazole 1% CRM 15 GM TUBE TP SCH (09:03)
[2018-10-02] MEDS: Perphenazine 2 MG TABLET PO SCH (09:04)
[2018-10-02] MEDS: Cholecalciferol (D-3) 1,000 UNIT TABLET PO SCH (09:04)
[2018-10-02] MEDS: Cyanocobalamin (B-12) 1,000 MCG TABLET PO SCH (09:04)
[2018-10-02] MEDS: Ascorbic Acid 500 MG TABLET PO SCH (09:04)
--- NOTE | 2018-10-02 10:18 | Discharge Summary ---
Orders not resulted at time of discharge: Pending orders 09/29/18 09:28 CT 3D reconstruction [CT] Stat Date of Encounter: 10/02/18 Time of Encounter: 10:10 - Discharge Diagnosis (1) Metastatic cancer to brain Priority: Primary Status: Acute (2) Bladder cancer Priority: Secondary Status: Acute Qualifiers: Bladder location: anterior wall Qualified Code(s): C67.3 - Malignant neoplasm of anterior wall of bladder (3) Left rotator cuff tear Priority: Secondary Status: Acute Qualifiers: Rotator cuff tear extent: incomplete Rotator cuff tear trauma status: traumatic Encounter type: initial encounter Qualified Code(s): S46.012A - Strain of muscle(s) and tendon(s) of the rotator cuff of left shoulder, initial encounter (4) Elevated transaminase level Priority: Secondary Status: Acute (5) Anemia Priority: Secondary Status: Acute Qualifiers: Anemia type: unspecified type Qualified Code(s): D64.9 - Anemia, unspecif ied (6) DM type 2 (diabetes mellitus, type 2) Priority: Secondary Status: Chronic Qualifiers: 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 Pastrana is a 73 year old male who was sent to emergency room after staff at the [facility] found him lying prone on the floor with right face down approximately 0630 today. He had been last seen in bed at approximately 0345. The fall was unwitnessed. He cannot give any reliable history. He was brought to emergency room and [facility]. He was on hospice because of metastatic bladder cancer. Hospice was revoked and he was evaluated and admitted to [facility] for ongoing care needs. Initial orders were written by the emergency room physician. I saw him on September 29 performed a history and physical. MRI of brain and bilateral shoulders was ordered to further evaluate. Brain MRI showed lesions in the posterior left marj, right frontal area, and periventricular white matter in both left and right frontal and parietal lobes. These were felt most likely due to metastatic lesions and less likely acute infarcts. There was evidence of left rotator c uff tear. It was felt he would benefit from therapy intervention. He was started empirically on Rocephin with lactobacillus. WBC normalized to 8.7 with decrease in left shift on differential by day of discharge and to swing bed. He will continue with IV Rocephin for minimum of 2 days in swing bed. There was decrease in AST but increase in ALT during his hospital course. This will be monitored in swing bed. Anemia testing showed iron 19, transferrin saturation 9%, transferrin 149, ferritin 1266, B12 635, and folate 5.4. Hemoglobin had decreased to 10.0 on October 02. Aspirin will be decreased to every other day. Hemoglobin A1c returned satisfactory at 6.8%. TobraDex was given and conjunctivitis significantly improved. The TobraDex will be continued for at least 2 days in swing bed. On October 02 arrangements were complete for him to be discharged to swing bed for ongoing care needs. - Time Spent with Patient Total time spent providing and/or coordinating discharge services: - Discharge Medications Prescriptions: New Aspirin Enteric Coated [Aspirin EC] 81 mg PO Q48H tablet. cefTRIAXone [Rocephin] 1,000 mg IVP Q24H vial Lactobacillus [Culturelle] 1 each PO BID cap.sprink Tobramycin/Dex Opth DROPS [Tobradex Opth Drops] 1 drop RIGHT EYE Q8H bottle Tobramycin/Dex Opth DROPS [Tobradex Opth Drops] 1 drop LEFT EYE Q8H bottle Continue traZODone [TraZODone] 50 mg PO HS Simvastatin [Zocor] 40 mg PO HS Donepezil [Aricept] 10 mg PO HS Cyanocobalamin (B-12) [Vitamin B12] 500 mcg PO DAILY Ipratropium/Albuterol Neb [Duoneb] 3 ml IH Q6HR Perphenazine 4 mg PO BID Docusate [Colace] 100 mg PO BID PRN PRN Reason: Constipation Cholecalciferol (Vitamin D3) [Vitamin D3] 2,000 unit PO DAILY Benzonatate [Tessalon] 100 mg PO BID PRN PRN Reason: Cough Omeprazole [PriLOSEC] 20 mg PO BIDAC #30 cap Ondansetron HCl [Zofran] 4 mg PO Q4H PRN #30 tablet PRN Reason: Nausea Prochlorperazine Maleate [Compazine] 10 mg PO Q6H PRN #30 tablet PRN Reason: Nausea Phenazopyridine [Pyridium] 100 mg PO TID #90 tablet Oxygen 1 each .ROUTE AD Tiotropium [Spiriva] 2 puff IH DAILY GuaiFENesin/Dextromethorphan [Pecgen Dmx 125-15 mg/5 ml Liq] 10 ml PO BID PRN PRN Reason: Cough Calcium Carbonate [Antacid] 400 mg PO DAILY Doxazosin Mesylate [Cardura] 2 mg PO HS Oxycodone HCl/Acetaminophen [Percocet 5-325 mg Tablet] 1 each PO Q4-6H PRN PRN Reason: Pain guaiFENesin [Guaifenesin] 400 mg PO Q8H PRN PRN Reason: Congestion Albuterol Neb [Proventil Neb] 2.5 mg IH Q6H PRN PRN Reason: Dyspnea Discontinued Ascorbate Calcium [Vitamin C] 1 tab PO DAILY #30 tablet Ferrous Sulfate [Iron] 1 tab PO DAILY #30 tablet Aspirin [Lo-Dose Aspirin EC] 81 mg PO DAILY Home Medications: Benzonatate [Tessalon] 100 mg PO BID PRN 07/06/17 [History] Cholecalciferol (Vitamin D3) [Vitamin D3] 2,000 unit PO DAILY 07/06/17 [History] Cyanocobalamin (B-12) [Vitamin B12] 500 mcg PO DAILY 07/06/17 [History] Docusate [Colace] 100 mg PO BID PRN 07/06/17 [History] Donepezil [Aricept] 10 mg PO HS 07/06/17 [History] Ipratropium/Albuterol Neb [Duoneb] 3 ml IH Q6HR 07/06/17 [History] Perphenazine 4 mg PO BID 07/06/17 [History] Simvastatin [Zocor] 40 mg PO HS 07/06/17 [History] traZODone [TraZODone] 50 mg PO HS 07/06/17 [History] Omeprazole [PriLOSEC] 20 mg PO BIDAC #30 cap 07/18/17 [Rx] Ondansetron HCl [Zofran] 4 mg PO Q4H PRN #30 tablet 07/18/17 [Rx] Prochlorperazine Maleate [Compazine] 10 mg PO Q6H PRN #30 tablet 07/18/17 [Rx] Phenazopyridine [Pyridium] 100 mg PO TID #90 tablet 08/23/17 [Rx] Oxygen 1 each .ROUTE AD 03/01/18 [History] GuaiFENesin/Dextromethorphan [Pecgen Dmx 125-15 mg/5 ml Liq] 10 ml PO BID PRN 07/03/18 [History] Tiotropium [Spiriva] 2 puff IH DAILY 07/03/18 [History] Albuterol Neb [Proventil Neb] 2.5 mg IH Q6H PRN 09/29/18 [History] Calcium Carbonate [Antacid] 400 mg PO DAILY 09/29/18 [History] Doxazosin Mesylate [Cardura] 2 mg PO HS 09/29/18 [History] Oxycodone HCl/Acetaminophen [Percocet 5-325 mg Tablet] 1 each PO Q4-6H PRN 09/29/18 [History] guaiFENesin [Guaifenesin] 400 mg PO Q8H PRN 09/29/18 [History] Aspirin Enteric Coated [Aspirin EC] 81 mg PO Q48H tablet. 10/02/18 [Rx] Lactobacillus [Culturelle] 1 each PO BID cap.sprink 10/02/18 [Rx] Tobramycin/Dex Opth DROPS [Tobradex Opth Drops] 1 drop LEFT EYE Q8H bottle 10/02/18 [Rx] Tobramycin/Dex Opth DROPS [Tobradex Opth Drops] 1 drop RIGHT EYE Q8H bottle 10/02/18 [Rx] cefTRIAXone [Rocephin] 1,000 mg IVP Q24H vial 10/02/18 [Rx] Allergies/Adverse Reactions: Allergy/AdvReac Type Severity Reaction Status Date / Time No Known Allergies Allergy Verified 07/03/18 10:25 Date of admission: 09/29/18 15:56 [facility] care physician: [facility] Consults: 10/01/18 15:53 Consult to Speech Therapy [CONS] Routine Comment: Evaluate, develop and implement POC Reason for Consult: Acute neuro deficits -CVA vs.mets -- dysphagia Call Completed: No - Constitutional Vitals: Temp Pulse Resp BP Pulse Ox 98.2 F 86 18 117/78 94 10/02/18 07:09 10/02/18 07:09 10/02/18 07:09 10/02/18 07:09 10/02/18 09:26 - Patient Status Disposition: Transfer Hospital Swing Bed Condition: Fair - Discharge Instructions - Diet and Activity Activity: as per physical therapy Diet: other (Advanced soft textured diet with thin liquids by straw)
[2018-10-02 10:26] VITALS: BP 114/76
[2018-10-02] MEDS: Tiotropium 18 MCG inhalation IH SCH (10:39)
== END 2018-10-02 14:06 | disposition other institution (70) | DRG 55 ==
LOC: EMEROOPIK 07:48 → INPPIK 07:48
PROVIDERS: ADMIT Internal Medicine; ATTEND Internal Medicine

== ENCOUNTER 2018-10-02 13:17 | Inpatient (IN) ==
[2018-10-02] MEDS ORDERED: Benzonatate 100 MG CAPSULE PO PRN (14:16)
[2018-10-02] MEDS ORDERED: Ondansetron ODT 4 MG TAB.RAPDIS PO PRN (14:16)
[2018-10-02] MEDS ORDERED: GuaiFENesin Liq 200 MG/10 ML UDC PO PRN (14:16)
[2018-10-02] MEDS ORDERED: CefTRIAXone 1,000 MG VIAL IVP SCH (15:00)
[2018-10-02] MEDS: cefTRIAXone 1,000 MG in Water for inj. (sterile) 20 ML 10 ML IVPB SCH (15:51)
[2018-10-02] MEDS: Tobramycin/Dex Opth DROPS 2.5 ML BOTTLE LEFT EYE SCH (15:52)
[2018-10-02] MEDS: Tobramycin/Dex Opth DROPS 2.5 ML BOTTLE RIGHT EYE SCH (15:52)
[2018-10-02] MEDS: *HR* OxyCODONE/APAP 5/325 TABLET PO PRN (15:52)
[2018-10-02] MEDS ORDERED: Ipratropium/Albuterol Neb 3 ML IH SCH (18:00)
[2018-10-02] MEDS: Lactobacillus 1 EACH CAP.SPRINK PO SCH (22:27)
[2018-10-02] MEDS: traZODone 50 MG TABLET PO SCH (22:28)
[2018-10-02] MEDS: Perphenazine 2 MG TABLET PO SCH (22:28)
[2018-10-03] MEDS: Tobramycin/Dex Opth DROPS 2.5 ML BOTTLE LEFT EYE SCH ×3 (01:08→17:27)
[2018-10-03] MEDS: Tobramycin/Dex Opth DROPS 2.5 ML BOTTLE RIGHT EYE SCH ×3 (01:08→17:27)
[2018-10-03 05:48] LABS: Basophils % 0.4 %; Eosinophils # 0.2 K/mcL (0.0-0.6); Eosinophils % 2.2 %; Hemoglobin 9.8 g/dL (12.9-16.9); Lymphocytes # 0.4 K/mcL (0.6-4.6); Lymphocytes % 4.1 %; Mean Corpuscular HGB Conc 28.8 g/dL (31.6-35.5); Mean Corpuscular Hemoglobin 30.3 pg (28.0-33.3); Mean Corpuscular Volume 105.3 fL (83.0-100.0); Mean Platelet Volume 11.4 fL (9.4-12.4); Monocytes # 0.7 K/mcL (0.0-1.3); Monocytes % 7.6 %; Neutrophils # 7.8 K/mcL (1.6-8.9); Platelet Count 183 K/mcL (140-400); Red Blood Count 3.23 M/mcL (4.19-5.50); Red Cell Distribution Width 13.7 % (11.5-14.5); Segmented Neutrophils % 84.7 %
[2018-10-03 06:09] LABS: BUN/Creatinine Ratio 20 (6-26); Blood Urea Nitrogen 13 mg/dL (8-23); Calcium 8.4 mg/dL (8.6-10.3); Carbon Dioxide 34 mEq/L (23-29); Chloride 98 mEq/L (98-107); Glucose 115 mg/dL (70-105); Osmolality,Calculated 287 (280-300); Sodium 138 mEq/L (136-145); eGFR For Non-African Americans > 60 (> 60)
[2018-10-03 06:15] LABS: Hypochromasia Present (Not Present)
[2018-10-03 06:16] LABS: Platelet Estimate Normal (Normal)
[2018-10-03] MEDS: Tiotropium 18 MCG inhalation IH SCH (10:27)
[2018-10-03] MEDS: Lactobacillus 1 EACH CAP.SPRINK PO SCH ×2 (11:38→21:48)
[2018-10-03] MEDS: Perphenazine 2 MG TABLET PO SCH ×2 (11:39→21:48)
[2018-10-03] MEDS: Cyanocobalamin (B-12) 1,000 MCG TABLET PO SCH (11:39)
[2018-10-03] MEDS: Cholecalciferol (D-3) 1,000 UNIT TABLET PO SCH (11:39)
[2018-10-03] MEDS: cefTRIAXone 1,000 MG in Water for inj. (sterile) 20 ML 10 ML IVPB SCH (17:28)
--- NOTE | 2018-10-03 17:45 | Internal Med Progress Note ---
Date of Encounter: 10/03/18 Time of Encounter: 17:35 - Assessment and plan (1) Metastatic cancer to brain Current Visit: No Status: Acute Assessment and plan: October 03. Continue PT, ST, and OT intervention. (2) Left rotator cuff tear Current Visit: No Status: Acute Assessment and plan: October 03. Continue PT and OT intervention. Qualifiers: Rotator cuff tear extent: incomplete Rotator cuff tear trauma status: traumatic Encounter type: initial encounter Qualified Code(s): S46.012A - Strain of muscle(s) and tendon(s) of the rotator cuff of left shoulder, initial encounter (3) Neutrophilic leukocytosis Current Visit: No Status: Acute Assessment and plan: October 03. Etiology not determined. He improved clinically on empiric Rocephin and this will be continued a minimum of 2 days in swing bed. Lactobacillus will be continued. Oral clindamycin will be started for possible right parotitis (4) Elevated transaminase level Current Visit: No Status: Acute Assessment and plan: October 03. Recheck labs periodically (5) Anemia Current Visit: No Status: Acute Assessment and plan: October 03. Hemoglobin minimally changed at 9.8. Continue to monitor. Qualifiers: Anemia type: unspecified type Qualified Code(s): D64.9 - Anemia, unspecified (6) Conjunctivitis Current Visit: No Status: Acute Assessment and plan: October 03. Continue TobraDex. Qualifiers: Conjunctivitis type: unspecified Laterality: bilateral Qualified Code(s): H10.9 - Unspecified conjunctivitis (7) Physical deconditioning Current Visit: No Status: Acute Assessment and plan: October 03. Continue PT and OT intervention. - Subjective Interval history: October 03. He was hospitalized in [facility] acute-care September 29- after presenting to ER following being found on the floor at [facility]. Evaluation showed probable additional metastatic lesions (less likely infarcts) involving the marj and bilateral cerebral hemispheres. Left rotator cuff tear was noted on MRI. He was discharged to swing bed for ongoing intervention. He has no new complaints today. - Constitutional Vitals: Temp Pulse Resp BP Pulse Ox 98.3 F 95 18 126/77 96 10/03/18 08:00 10/03/18 08:00 10/03/18 10:28 10/03/18 08:00 10/03/18 10:28 Exam: He is lying in bed and appears in no acute distress. There has been decrease in the size of his left face swelling but now there is a distinct firmness suspicious for parotid gland enlargement. He has no significant change in movement ability of his left arm up. I reviewed his medications and lab results. Internal Medicine: Result - Labs CBC & Chem 7: 10/03/18 05:41 10/03/18 05:41 Labs: Short CBC 10/03/18 Range/Units 05:41 WBC 9.2 (4.3-11.1) K/mcL Hgb 9.8 L (12.9-16.9) g/dL Hct 34.0 L (37.5-50.1) % Plt Count 183 (140-400) K/mcL Neutrophils # 7.8 (1.6-8.9) K/mcL BMP 10/03/18 05:41 Sodium 138 Potassium 4.0 Chloride 98 Carbon Dioxide 34 H BUN 13 Creatinine 0.66 L Glucose 115 H Calcium 8.4 L Consult Discharge Plan - Plan Referrals: NONE,PCP [Primary Care Provider] - 1 week
[2018-10-03] MEDS: traZODone 50 MG TABLET PO SCH (21:48)
[2018-10-04] MEDS: Tobramycin/Dex Opth DROPS 2.5 ML BOTTLE LEFT EYE SCH ×4 (01:38→23:55)
[2018-10-04] MEDS: Tobramycin/Dex Opth DROPS 2.5 ML BOTTLE RIGHT EYE SCH ×4 (01:38→23:55)
[2018-10-04] MEDS: Cyanocobalamin (B-12) 1,000 MCG TABLET PO SCH (08:01)
[2018-10-04] MEDS: Perphenazine 2 MG TABLET PO SCH ×2 (08:01→21:47)
[2018-10-04] MEDS: Aspirin Enteric Coated 81 MG Tablet PO SCH (08:01)
[2018-10-04] MEDS: Cholecalciferol (D-3) 1,000 UNIT TABLET PO SCH (08:01)
[2018-10-04] MEDS: Lactobacillus 1 EACH CAP.SPRINK PO SCH ×2 (08:01→21:48)
[2018-10-04] MEDS: Tiotropium 18 MCG inhalation IH SCH (09:13)
[2018-10-04] MEDS: cefTRIAXone 1,000 MG in Water for inj. (sterile) 20 ML 10 ML IVPB SCH (17:48)
[2018-10-04] MEDS: traZODone 50 MG TABLET PO SCH (21:48)
[2018-10-05] MEDS: Tiotropium 18 MCG inhalation IH SCH (10:26)
[2018-10-05] MEDS: Cyanocobalamin (B-12) 1,000 MCG TABLET PO SCH (10:54)
[2018-10-05] MEDS: Perphenazine 2 MG TABLET PO SCH ×2 (10:54→22:00)
[2018-10-05] MEDS: Cholecalciferol (D-3) 1,000 UNIT TABLET PO SCH (10:54)
[2018-10-05] MEDS: Lactobacillus 1 EACH CAP.SPRINK PO SCH ×2 (10:54→22:01)
--- NOTE | 2018-10-05 10:54 | Internal Med Progress Note ---
Date of Encounter: 10/05/18 Time of Encounter: 10:25 - Assessment and plan (1) Metastatic cancer to brain Current Visit: No Status: Acute Assessment and plan: October 03. Continue PT, ST, and OT intervention. (2) Left rotator cuff tear Current Visit: No Status: Acute Assessment and plan: October 03. Continue PT and OT intervention. Qualifiers: Rotator cuff tear extent: incomplete Rotator cuff tear trauma status: traumatic Encounter type: initial encounter Qualified Code(s): S46.012A - Strain of muscle(s) and tendon(s) of the rotator cuff of left shoulder, initial encounter (3) Neutrophilic leukocytosis Current Visit: No Status: Acute Assessment and plan: October 03. Etiology not determined. He improved clinically on empiric Rocephin and this will be continued a minimum of 2 days in swing bed. Lactobacillus will be continued. Oral clindamycin will be started for possible right parotitis October 05. He remains afebrile. Discontinue Rocephin. Continue oral clindamycin with lactobacillus. (4) Elevated transaminase level Current Visit: No Status: Acute Assessment and plan: October 03. Recheck labs periodically October 05. Recheck labs in a.m. (5) Anemia Current Visit: No Status: Acute Assessment and plan: October 03. Hemoglobin minimally changed at 9.8. Continue to monitor. October 05. Recheck labs in a.m. Qualifiers: Anemia type: unspecified type Qualified Code(s): D64.9 - Anemia, unspecified (6) Conjunctivitis Current Visit: No Status: Acute Assessment and plan: October 03. Continue TobraDex. October 05. Discontinue TobraDex. Qualifiers: Conjunctivitis type: unspecified Laterality: bilateral Qualified Code(s): H10.9 - Unspecified conjunctivitis (7) Physical deconditioning Current Visit: No Status: Acute Assessment and plan: October 03. Continue PT and OT intervention. (8) Hyperlipidemia Current Visit: Yes Status: Acute Assessment and plan: October 05. Check lipid profile in a.m. Qualifiers: Hyperlipidemia type: unspecified Qualified Code(s): E78.5 - Hyperlipidemia, unspecified - Subjective Interval history: October 03. He was hospitalized in [facility] acute-care September 29- after presenting [facility] ER [facility] Evaluation showed probable additional metastatic lesions (less likely infarcts) involving the marj and bilateral cerebral hemispheres. Left rotator cuff tear was noted on MRI. He was discharged to swing bed for ongoing intervention. He has no new complaints today. October 05. He has no new complaints. - Constitutional Vitals: Temp Pulse Resp BP Pulse Ox 98.1 F 104 18 109/71 93 10/05/18 09:13 10/05/18 09:13 10/05/18 09:13 10/05/18 09:13 10/05/18 09:13 Exam: He is sitting in a chair at bedside and appears in no acute distress. His affect is flat. He has no residual conjunctivitis. There is little change in his right parotid gland. I reviewed his medications and lab results. Internal Medicine: Result - Labs CBC & Chem 7: 10/03/18 05:41 10/03/18 05:41 Consult Discharge Plan - Plan Referrals: NONE,PCP [Primary Care Provider] - 1 week
[2018-10-05] MEDS: Tobramycin/Dex Opth DROPS 2.5 ML BOTTLE RIGHT EYE SCH (15:20)
[2018-10-05] MEDS: Tobramycin/Dex Opth DROPS 2.5 ML BOTTLE LEFT EYE SCH (15:21)
[2018-10-05] MEDS: traZODone 50 MG TABLET PO SCH (21:59)
[2018-10-05] MEDS: *HR* OxyCODONE/APAP 5/325 TABLET PO PRN (21:59)
[2018-10-06 06:40] LABS: Basophils # 0.1 K/mcL (0.0-0.2); Basophils % 0.5 %; Eosinophils # 0.2 K/mcL (0.0-0.6); Eosinophils % 2.1 %; Hematocrit 33.3 % (37.5-50.1); Hemoglobin 9.5 g/dL (12.9-16.9); Immature Granulocytes % 1.4 % (0-4); Lymphocytes # 0.4 K/mcL (0.6-4.6); Lymphocytes % 4.8 %; Mean Corpuscular HGB Conc 28.5 g/dL (31.6-35.5); Mean Corpuscular Hemoglobin 29.9 pg (28.0-33.3); Mean Corpuscular Volume 104.7 fL (83.0-100.0); Mean Platelet Volume 11.5 fL (9.4-12.4); Monocytes # 0.8 K/mcL (0.0-1.3); Monocytes % 9.2 %; Neutrophils # 7.5 K/mcL (1.6-8.9); Platelet Count 237 K/mcL (140-400); Red Blood Count 3.18 M/mcL (4.19-5.50); Red Cell Distribution Width 13.5 % (11.5-14.5)
[2018-10-06 07:32] LABS: Chol/HDL Ratio 3.3 (0-4.9)
[2018-10-06 07:57] LABS: Alanine Aminotransferase 50 Units/L (7-52); Albumin 2.5 g/dL (3.5-5.7); Albumin/Globulin Ratio 0.6 (1.1-2.2); Alkaline Phosphatase 87 Units/L (34-104); Aspartate Amino Transferase 39 Units/L (13-39); BUN/Creatinine Ratio 22 (6-26); Bilirubin,Total 0.3 mg/dL (0.3-1.0); Blood Urea Nitrogen 15 mg/dL (8-23); Calcium 8.9 mg/dL (8.6-10.3); Carbon Dioxide 38 mEq/L (23-29); Chloride 97 mEq/L (98-107); Glucose 113 mg/dL (70-105); Osmolality,Calculated 296 (280-300); Potassium 3.9 mEq/L (3.5-5.1); Sodium 142 mEq/L (136-145); Total Protein 6.5 g/dL (6.4-8.9); eGFR For Non-African Americans > 60 (> 60)
[2018-10-06 08:49] LABS: Anisocytosis 1+ (Not Present); Platelet Estimate Normal (Normal); Polychromasia 1+ (Not Present)
[2018-10-06] MEDS: Perphenazine 2 MG TABLET PO SCH ×2 (09:14→21:13)
[2018-10-06] MEDS: Lactobacillus 1 EACH CAP.SPRINK PO SCH ×2 (09:15→21:12)
[2018-10-06] MEDS: *HR* OxyCODONE/APAP 5/325 TABLET PO PRN (09:15)
[2018-10-06] MEDS: Cyanocobalamin (B-12) 1,000 MCG TABLET PO SCH (09:15)
[2018-10-06] MEDS: Aspirin Enteric Coated 81 MG Tablet PO SCH (09:15)
[2018-10-06] MEDS: Cholecalciferol (D-3) 1,000 UNIT TABLET PO SCH (09:16)
[2018-10-06] MEDS: Albuterol 2.5 MG/3 ML NEBULIZER IH PRN (10:42)
[2018-10-06] MEDS: Tiotropium 18 MCG inhalation IH SCH (10:42)
[2018-10-06] MEDS: traZODone 50 MG TABLET PO SCH (21:13)
[2018-10-07] MEDS: Perphenazine 2 MG TABLET PO SCH ×2 (09:01→20:07)
[2018-10-07] MEDS: Cyanocobalamin (B-12) 1,000 MCG TABLET PO SCH (09:01)
[2018-10-07] MEDS: Cholecalciferol (D-3) 1,000 UNIT TABLET PO SCH (09:02)
[2018-10-07] MEDS: Lactobacillus 1 EACH CAP.SPRINK PO SCH (09:02)
[2018-10-07] MEDS: Tiotropium 18 MCG inhalation IH SCH (10:45)
--- NOTE | 2018-10-07 16:11 | Internal Med Progress Note ---
Date of Encounter: 10/07/18 Time of Encounter: 16:00 - Assessment and plan (1) Metastatic cancer to brain Current Visit: No Status: Acute Assessment and plan: October 03. Continue PT, ST, and OT intervention. (2) Left rotator cuff tear Current Visit: No Status: Acute Assessment and plan: October 03. Continue PT and OT intervention. Qualifiers: Rotator cuff tear extent: incomplete Rotator cuff tear trauma status: traumatic Encounter type: initial encounter Qualified Code(s): S46.012A - Strain of muscle(s) and tendon(s) of the rotator cuff of left shoulder, initial encounter (3) Neutrophilic leukocytosis Current Visit: No Status: Acute Assessment and plan: October 03. Etiology not determined. He improved clinically on empiric Rocephin and this will be continued a minimum of 2 days in swing bed. Lactobacillus will be continued. Oral clindamycin will be started for possible right parotitis October 05. He remains afebrile. Discontinue Rocephin. Continue oral clindamycin with lactobacillus. October 07. WBC and left shift slightly improved on 10/06/2018. Discontinue clindamycin and Lactobacillus. Right parotid area appears unchanged. (4) Elevated transaminase level Current Visit: No Status: Acute Assessment and plan: October 03. Recheck labs periodically October 05. Recheck labs in a.m. October 07. LFTs now normal. (5) Anemia Current Visit: No Status: Acute Assessment and plan: October 03. Hemoglobin minimally changed at 9.8. Continue to monitor. October 05. Recheck labs in a.m. October 07. Hemoglobin minimally decreased at 9.5. Continue to monitor. Qualifiers: Anemia type: unspecified type Qualified Code(s): D64.9 - Anemia, unspecified (6) Conjunctivitis Current Visit: No Status: Acute Assessment and plan: October 03. Continue TobraDex. October 05. Discontinue TobraDex. Qualifiers: Conjunctivitis type: unspecified Laterality: bilateral Qualified Code(s): H10.9 - Unspecified conjunctivitis (7) Physical deconditioning Current Visit: No Status: Acute Assessment and plan: October 03. Continue PT and OT intervention. (8) Hyperlipidemia Current Visit: Yes Status: Acute Assessment and plan: October 05. Check lipid profile in a.m. October 07. Lipid profile showed total cholesterol 117, triglycerides 108, LDL 59, HDL 36, and total/HDL ratio 3.3. Decrease simvastatin to 20 mg daily. Qualifiers: Hyperlipidemia type: unspecified Qualified Code(s): E78.5 - Hyperlipidemia, unspecified - Subjective Interval history: October 03. He was hospitalized in [facility] acute-care September 29- after presenting to ER following being [facility]. Evaluation showed probable additional metastatic lesions (less likely infarcts) involving the marj and bilateral cerebral hemispheres. Left rotator cuff tear was noted on MRI. He was discharged to swing bed for ongoing intervention. He has no new complaints today. October 05. He has no new complaints. October 07. No new problems have arisen. - Constitutional Vitals: Temp Pulse Resp BP Pulse Ox 98.8 F 104 20 114/75 92 10/07/18 06:54 10/07/18 06:54 10/07/18 10:45 10/07/18 06:54 10/07/18 10:45 Exam: He is seeing a chair at bedside and appears in no acute distress. Extremities show no edema. Conjunctivitis remains resolved. I reviewed his medications and lab results. Internal Medicine: Result - Labs CBC & Chem 7: 10/06/18 06:15 10/06/18 06:17 Consult Discharge Plan - Plan Referrals: NONE,PCP [Primary Care Provider] - 1 week
[2018-10-07] MEDS: traZODone 50 MG TABLET PO SCH (20:07)
[2018-10-08] MEDS: Cyanocobalamin (B-12) 1,000 MCG TABLET PO SCH (08:55)
[2018-10-08] MEDS: Aspirin Enteric Coated 81 MG Tablet PO SCH (08:55)
[2018-10-08] MEDS: Cholecalciferol (D-3) 1,000 UNIT TABLET PO SCH (08:55)
[2018-10-08] MEDS: Perphenazine 2 MG TABLET PO SCH ×2 (08:56→21:47)
[2018-10-08] MEDS: Tiotropium 18 MCG inhalation IH SCH (10:13)
[2018-10-08] MEDS: Albuterol 2.5 MG/3 ML NEBULIZER IH PRN (10:23)
[2018-10-08] MEDS: traZODone 50 MG TABLET PO SCH (21:48)
[2018-10-09 06:42] LABS: Basophils # 0.1 K/mcL (0.0-0.2); Basophils % 0.6 %; Eosinophils # 0.1 K/mcL (0.0-0.6); Eosinophils % 0.8 %; Hematocrit 33.8 % (37.5-50.1); Hemoglobin 9.9 g/dL (12.9-16.9); Immature Granulocytes % 1.7 % (0-4); Lymphocytes # 0.5 K/mcL (0.6-4.6); Lymphocytes % 4.6 %; Mean Corpuscular HGB Conc 29.3 g/dL (31.6-35.5); Mean Corpuscular Hemoglobin 29.7 pg (28.0-33.3); Mean Corpuscular Volume 101.5 fL (83.0-100.0); Mean Platelet Volume 11.3 fL (9.4-12.4); Monocytes # 0.9 K/mcL (0.0-1.3); Monocytes % 9.1 %; Neutrophils # 8.3 K/mcL (1.6-8.9); Platelet Count 253 K/mcL (140-400); Red Blood Count 3.33 M/mcL (4.19-5.50); Red Cell Distribution Width 13.9 % (11.5-14.5); Segmented Neutrophils % 83.2 %
[2018-10-09] MEDS: Cholecalciferol (D-3) 1,000 UNIT TABLET PO SCH (09:40)
[2018-10-09] MEDS: Cyanocobalamin (B-12) 1,000 MCG TABLET PO SCH (09:40)
[2018-10-09] MEDS: Perphenazine 2 MG TABLET PO SCH ×2 (09:40→21:53)
[2018-10-09] MEDS: Tiotropium 18 MCG inhalation IH SCH (10:04)
--- NOTE | 2018-10-09 18:33 | Internal Med Progress Note ---
Date of Encounter: 10/09/18 Time of Encounter: 18:25 - Assessment and plan (1) Metastatic cancer to brain Current Visit: No Status: Acute Assessment and plan: October 03. Continue PT, ST, and OT intervention. (2) Left rotator cuff tear Current Visit: No Status: Acute Assessment and plan: October 03. Continue PT and OT intervention. Qualifiers: Rotator cuff tear extent: incomplete Rotator cuff tear trauma status: traumatic Encounter type: initial encounter Qualified Code(s): S46.012A - Strain of muscle(s) and tendon(s) of the rotator cuff of left shoulder, initial encounter (3) Neutrophilic leukocytosis Current Visit: No Status: Acute Assessment and plan: October 03. Etiology not determined. He improved clinically on empiric Rocephin and this will be continued a minimum of 2 days in swing bed. Lactobacillus will be continued. Oral clindamycin will be started for possible right parotitis October 05. He remains afebrile. Discontinue Rocephin. Continue oral clindamycin with lactobacillus. October 07. WBC and left shift slightly improved on 10/06/2018. Discontinue clindamycin and Lactobacillus. Right parotid area appears unchanged. October 09. WBC remains normal with unchanged left shift. Continue to monitor. (4) Elevated transaminase level Current Visit: No Status: Acute Assessment and plan: October 03. Recheck labs periodically October 05. Recheck labs in a.m. October 07. LFTs now normal. (5) Anemia Current Visit: No Status: Acute Assessment and plan: October 03. Hemoglobin minimally changed at 9.8. Continue to monitor. October 05. Recheck labs in a.m. October 07. Hemoglobin minimally decreased at 9.5. Continue to monitor. October 09. Hemoglobin stable at 9.9. Qualifiers: Anemia type: unspecified type Qualified Code(s): D64.9 - Anemia, unspeci fied (6) Conjunctivitis Current Visit: No Status: Acute Assessment and plan: October 03. Continue TobraDex. October 05. Discontinue TobraDex. Qualifiers: Conjunctivitis type: unspecified Laterality: bilateral Qualified Code(s): H10.9 - Unspecified conjunctivitis (7) Physical deconditioning Current Visit: No Status: Acute Assessment and plan: October 03. Continue PT and OT intervention. (8) Hyperlipidemia Current Visit: Yes Status: Acute Assessment and plan: October 05. Check lipid profile in a.m. October 07. Lipid profile showed total cholesterol 117, triglycerides 108, LDL 59, HDL 36, and total/HDL ratio 3.3. Decrease simvastatin to 20 mg daily. Qualifiers: Hyperlipidemia type: unspecified Qualified Code(s): E78.5 - Hyperlipidemia, unspecified - Subjective Interval history: October 03. He was hospitalized in [facility] acute-care September 29- after presenting to ER following being found on the floor at assisted. Evaluation showed probable additional metastatic lesions (less likely infarcts) involving the marj and bilateral cerebral hemispheres. Left rotator cuff tear was noted on MRI. He was discharged to swing bed for ongoing intervention. He has no new complaints today. October 05. He has no new complaints. October 07. No new problems have arisen. October 09. He has no new complaints. He had MBS earlier today after staff expressed concerns for possible aspiration. - Constitutional Vitals: Temp Pulse Resp BP Pulse Ox 98.5 F 97 17 118/61 91 10/09/18 18:25 10/09/18 18:25 10/09/18 18:25 10/09/18 18:25 10/09/18 18:25 Exam: He is resting comfortably in bed and appears in no acute distress. Right parotid area swelling has decreased in size. Heart was regular without ectopics. His right flank area shows ruptured vesicles with ecchymosis extending across midline. I reviewed his medications and lab results. Internal Medicine: Result - Labs CBC & Chem 7: 10/09/18 06:05 10/06/18 06:17 Labs: Short CBC 10/09/18 Range/Units 06:05 WBC 10.0 (4.3-11.1) K/mcL Hgb 9.9 L (12.9-16.9) g/dL Hct 33.8 L (37.5-50.1) % Plt Count 253 (140-400) K/mcL Neutrophils # 8.3 (1.6-8.9) K/mcL - Impressions Impressions Videofluoroscopic Swallow 10/09/18 00:00 IMPRESSION: Poor oral phase of the swallowing mechanism but no evidence for aspiration. Please see separate speech pathology report for full discussion of findings and recommendations. D/ / Juan José Sutton MD / Juan José Sutton MD Interpreting Provider: Juan José Sutton MD Chest X-Ray 10/09/18 10:39 IMPRESSION: 1. Stable chest x-ray with bilateral pulmonary metastases. 2. No new airspace disease. D/ / Juan José Sutton MD / Juan José Sutton MD Interpreting Provider: Juan José Sutton MD Consult Discharge Plan - Plan Referrals: NONE,PCP [Primary Care Provider] - 1 week
[2018-10-09] MEDS: traZODone 50 MG TABLET PO SCH (21:53)
[2018-10-10] MEDS: Perphenazine 2 MG TABLET PO SCH ×2 (10:32→21:07)
[2018-10-10] MEDS: Cyanocobalamin (B-12) 1,000 MCG TABLET PO SCH (10:32)
[2018-10-10] MEDS: Aspirin Enteric Coated 81 MG Tablet PO SCH (10:33)
[2018-10-10] MEDS: Cholecalciferol (D-3) 1,000 UNIT TABLET PO SCH (10:33)
[2018-10-10] MEDS: Tiotropium 18 MCG inhalation IH SCH (11:06)
[2018-10-10] MEDS: traZODone 50 MG TABLET PO SCH (21:08)
[2018-10-11] MEDS: Cholecalciferol (D-3) 1,000 UNIT TABLET PO SCH (08:56)
[2018-10-11] MEDS: Cyanocobalamin (B-12) 1,000 MCG TABLET PO SCH (08:56)
[2018-10-11] MEDS: Perphenazine 2 MG TABLET PO SCH ×2 (08:57→20:41)
[2018-10-11] MEDS: Tiotropium 18 MCG inhalation IH SCH (11:01)
[2018-10-11] MEDS: Albuterol 2.5 MG/3 ML NEBULIZER IH PRN (11:03)
[2018-10-11] MEDS: traZODone 50 MG TABLET PO SCH (20:41)
[2018-10-12] MEDS: Aspirin Enteric Coated 81 MG Tablet PO SCH (08:31)
[2018-10-12] MEDS: Perphenazine 2 MG TABLET PO SCH ×2 (08:31→20:32)
[2018-10-12] MEDS: Cholecalciferol (D-3) 1,000 UNIT TABLET PO SCH (08:32)
[2018-10-12] MEDS: Cyanocobalamin (B-12) 1,000 MCG TABLET PO SCH (08:32)
--- NOTE | 2018-10-12 10:04 | Internal Med Progress Note ---
Date of Encounter: 10/12/18 Time of Encounter: 09:57 - Assessment and plan (1) Metastatic cancer to brain Current Visit: No Status: Acute Assessment and plan: October 03. Continue PT, ST, and OT intervention. (2) Left rotator cuff tear Current Visit: No Status: Acute Assessment and plan: October 03. Continue PT and OT intervention. Qualifiers: Rotator cuff tear extent: incomplete Rotator cuff tear trauma status: traumatic Encounter type: initial encounter Qualified Code(s): S46.012A - Strain of muscle(s) and tendon(s) of the rotator cuff of left shoulder, initial encounter (3) Neutrophilic leukocytosis Current Visit: No Status: Acute Assessment and plan: October 03. Etiology not determined. He improved clinically on empiric Rocephin and this will be continued a minimum of 2 days in swing bed. Lactobacillus will be continued. Oral clindamycin will be started for possible right parotitis October 05. He remains afebrile. Discontinue Rocephin. Continue oral clindamycin with lactobacillus. October 07. WBC and left shift slightly improved on 10/06/2018. Discontinue clindamycin and Lactobacillus. Right parotid area appears unchanged. October 09. WBC remains normal with unchanged left shift. Continue to monitor. October 12. Right parotid area has further decreased in size. Remain off antibiotics (4) Elevated transaminase level Current Visit: No Status: Acute Assessment and plan: October 03. Recheck labs periodically October 05. Recheck labs in a.m. October 07. LFTs now normal. (5) Anemia Current Visit: No Status: Acute Assessment and plan: October 03. Hemoglobin minimally changed at 9.8. Continue to monitor. October 05. Recheck labs in a.m. October 07. Hemoglobin minimally decreased at 9.5. Continue to monitor. October 09. Hemoglobin stable at 9.9. Qualifiers: Anemia type: unspecified type Qualified Code(s): D64.9 - Anemia, unspecified (6) Conjunctivitis Current Visit: No Status: Acute Assessment and plan: October 03. Continue TobraDex. October 05. Discontinue TobraDex. Qualifiers: Conjunctivitis type: unspecified Laterality: bilateral Qualified Code(s): H10.9 - Unspecified conjunctivitis (7) Physical deconditioning Current Visit: No Status: Acute Assessment and plan: October 03. Continue PT and OT intervention. (8) Hyperlipidemia Current Visit: Yes Status: Acute Assessment and plan: October 05. Check lipid profile in a.m. October 07. Lipid profile showed total cholesterol 117, triglycerides 108, LDL 59, HDL 36, and total/HDL ratio 3.3. Decrease simvastatin to 20 mg daily. Qualifiers: Hyperlipidemia type: unspecified Qualified Code(s): E78.5 - Hyperlipidemia, unspecified - Subjective Interval history: October 03. He was hospitalized in [facility] acute-care September 29- after presenting to ER following being found on the floor at [facility]. Evaluation showed probable additional metastatic lesions (less likely infarcts) involving the marj and bilateral cerebral hemispheres. Left rotator cuff tear was noted on MRI. He was discharged to swing bed for ongoing intervention. He has no new complaints today. October 05. He has no new complaints. October 07. No new problems have arisen. October 09. He has no new complaints. He had MBS earlier today after staff expressed concerns for possible aspiration. October 12. No new problems have arisen. - Constitutional Vitals: Temp Pulse Resp BP Pulse Ox 99.0 F 99 24 114/63 90 10/12/18 06:47 10/12/18 06:47 10/12/18 06:47 10/12/18 06:47 10/12/18 06:47 Exam: He is sitting in a chair at bedside resting comfortably. His affect is slightly flat. There is no significant mucopurulent drainage in his eyes. Extremities show no edema. I reviewed his medications, vitals, and lab results. Internal Medicine: Result - Labs CBC & Chem 7: 10/09/18 06:05 10/06/18 06:17 Consult Discharge Plan - Plan Referrals: NONE,PCP [Primary Care Provider] - 1 week
[2018-10-12] MEDS: Tiotropium 18 MCG inhalation IH SCH (11:06)
[2018-10-12] MEDS: traZODone 50 MG TABLET PO SCH (20:32)
[2018-10-13] MEDS: Tiotropium 18 MCG inhalation IH SCH (09:54)
[2018-10-13] MEDS: Metoprolol XL (24 HR) Succ 25 MG TAB.ER.24H PO SCH (10:21)
[2018-10-13] MEDS: Perphenazine 2 MG TABLET PO SCH ×2 (10:22→20:26)
[2018-10-13] MEDS: Cholecalciferol (D-3) 1,000 UNIT TABLET PO SCH (10:23)
[2018-10-13] MEDS: Cyanocobalamin (B-12) 1,000 MCG TABLET PO SCH (10:24)
[2018-10-13] MEDS: *HR* OxyCODONE/APAP 5/325 TABLET PO PRN (12:35)
[2018-10-13] MEDS: traZODone 50 MG TABLET PO SCH (20:27)
[2018-10-14] MEDS: Aspirin Enteric Coated 81 MG Tablet PO SCH (08:09)
[2018-10-14] MEDS: Cholecalciferol (D-3) 1,000 UNIT TABLET PO SCH (08:09)
[2018-10-14] MEDS: Cyanocobalamin (B-12) 1,000 MCG TABLET PO SCH (08:10)
[2018-10-14] MEDS: Metoprolol XL (24 HR) Succ 25 MG TAB.ER.24H PO SCH (08:10)
[2018-10-14] MEDS: Perphenazine 2 MG TABLET PO SCH ×2 (08:11→20:58)
[2018-10-14] MEDS: Tiotropium 18 MCG inhalation IH SCH (10:13)
[2018-10-14] MEDS: traZODone 50 MG TABLET PO SCH (20:58)
[2018-10-15] MEDS: Cholecalciferol (D-3) 1,000 UNIT TABLET PO SCH (07:55)
[2018-10-15] MEDS: Cyanocobalamin (B-12) 1,000 MCG TABLET PO SCH (07:56)
[2018-10-15] MEDS: Perphenazine 2 MG TABLET PO SCH ×2 (07:57→21:40)
[2018-10-15] MEDS: Metoprolol XL (24 HR) Succ 25 MG TAB.ER.24H PO SCH (07:57)
[2018-10-15] MEDS: Tiotropium 18 MCG inhalation IH SCH (10:58)
--- NOTE | 2018-10-15 15:43 | Internal Med Progress Note ---
Date of Encounter: 10/15/18 Time of Encounter: 15:37 - Assessment and plan (1) Metastatic cancer to brain Current Visit: No Status: Acute Assessment and plan: October 03. Continue PT, ST, and OT intervention. October 15. Anticipate return to [facility] 10/17/2018 and resume hospice services. (2) Left rotator cuff tear Current Visit: No Status: Acute Assessment and plan: October 03. Continue PT and OT intervention. Qualifiers: Rotator cuff tear extent: incomplete Rotator cuff tear trauma status: traumatic Encounter type: initial encounter Qualified Code(s): S46.012A - Strain of muscle(s) and tendon(s) of the rotator cuff of left shoulder, initial encounter (3) Neutrophilic leukocytosis Current Visit: No Status: Acute Assessment and plan: October 03. Etiology not determined. He improved clinically on empiric Rocephin and this will be continued a minimum of 2 days in swing bed. Lactobacillus will be continued. Oral clindamycin will be started for possible right parotitis October 05. He remains afebrile. Discontinue Rocephin. Continue oral clindamycin with lactobacillus. October 07. WBC and left shift slightly improved on 10/06/2018. Discontinue clindamycin and Lactobacillus. Right parotid area appears unchanged. October 09. WBC remains normal with unchanged left shift. Continue to monitor. October 12. Right parotid area has further decreased in size. Remain off antibiotics (4) Elevated transaminase level Current Visit: No Status: Acute Assessment and plan: October 03. Recheck labs periodically October 05. Recheck labs in a.m. October 07. LFTs now normal. (5) Anemia Current Visit: No Status: Acute Assessment and plan: October 03. Hemoglobin minimally changed at 9.8. Continue to monitor. October 05. Recheck labs in a.m. October 07. Hemoglobin minimally decreased at 9.5. Continue to monitor. October 09. Hemoglobin stable at 9.9. Qualifiers: Anemia type: unspecified type Qualified Code(s): D64.9 - Anemia, unspecified (6) Conjunctivitis Current Visit: No Status: Acute Assessment and plan: October 03. Continue TobraDex. October 05. Discontinue TobraDex. Qualifiers: Conjunctivitis type: unspecified Laterality: bilateral Qualified Code(s): H10.9 - Unspecified conjunctivitis (7) Physical deconditioning Current Visit: No Status: Acute Assessment and plan: October 03. Continue PT and OT intervention. (8) Hyperlipidemia Current Visit: Yes Status: Acute Assessment and plan: October 05. Check lipid profile in a.m. October 07. Lipid profile showed total cholesterol 117, triglycerides 108, LDL 59, HDL 36, and total/HDL ratio 3.3. Decrease simvastatin to 20 mg daily. Qualifiers: Hyperlipidemia type: unspecified Qualified Code(s): E78.5 - Hyperlipidemia, unspecified - Subjective Interval history: October 03. He was hospitalized in [facility] acute-care September 29- after presenting to ER following being found on the floor at [facility]. Evaluation showed probable additional metastatic lesions (less likely infarcts) involving the marj and bilateral cerebral hemispheres. Left rotator cuff tear was noted on MRI. He was discharged to swing bed for ongoing intervention. He has no new complaints today. October 05. He has no new complaints. October 07. No new problems have arisen. October 09. He has no new complaints. He had MBS earlier today after staff expressed concerns for possible aspiration. October 12. No new problems have arisen. October 15. He has no new complaints. - Constitutional Vitals: Temp Pulse Resp BP Pulse Ox 97.5 F L 99 20 122/72 90 10/15/18 07:18 10/15/18 07:18 10/15/18 10:58 10/15/18 07:18 10/15/18 10:58 Exam: He is resting comfortably in bed and appears in no acute distress. His affect is overall cheerful. Parotid swelling appears to have resolved. Extremities show no edema. I reviewed his medications and lab results. Internal Medicine: Result - Labs CBC & Chem 7: 10/09/18 06:05 10/06/18 06:17 Consult Discharge Plan - Plan Referrals: NONE,PCP [Primary Care Provider] - 1 week
[2018-10-15] MEDS: traZODone 50 MG TABLET PO SCH (21:41)
[2018-10-16] MEDS: Perphenazine 2 MG TABLET PO SCH ×2 (08:22→22:10)
[2018-10-16] MEDS: Cholecalciferol (D-3) 1,000 UNIT TABLET PO SCH (08:23)
[2018-10-16] MEDS: Cyanocobalamin (B-12) 1,000 MCG TABLET PO SCH (08:23)
[2018-10-16] MEDS: Aspirin Enteric Coated 81 MG Tablet PO SCH (08:24)
[2018-10-16] MEDS: Metoprolol XL (24 HR) Succ 25 MG TAB.ER.24H PO SCH (08:24)
[2018-10-16] MEDS: Tiotropium 18 MCG inhalation IH SCH (10:49)
[2018-10-16] MEDS: traZODone 50 MG TABLET PO SCH (22:10)
[2018-10-17] MEDS: Albuterol 2.5 MG/3 ML NEBULIZER IH PRN (08:39)
[2018-10-17] MEDS: Tiotropium 18 MCG inhalation IH SCH (08:40)
[2018-10-17] MEDS ORDERED: Ipratropium/Albuterol Neb 3 ML IH PRN (09:59)
[2018-10-17] MEDS ORDERED: Albuterol 2.5 MG/3 ML NEBULIZER IH PRN (10:25)
[2018-10-17] MEDS: Perphenazine 2 MG TABLET PO SCH (10:30)
[2018-10-17] MEDS: Cyanocobalamin (B-12) 1,000 MCG TABLET PO SCH (10:30)
[2018-10-17] MEDS: Metoprolol XL (24 HR) Succ 25 MG TAB.ER.24H PO SCH (10:30)
[2018-10-17] MEDS: Cholecalciferol (D-3) 1,000 UNIT TABLET PO SCH (10:31)
--- NOTE | 2018-10-17 14:55 | Discharge Summary ---
Date of Encounter: 10/17/18 Time of Encounter: 11:30 - Discharge Diagnosis (1) Metastatic cancer to brain Priority: Primary Status: Acute (2) Left rotator cuff tear Priority: Secondary Status: Acute Qualifiers: Rotator cuff tear extent: incomplete Rotator cuff tear trauma status: traumatic Encounter type: initial encounter Qualified Code(s): S46.012A - Strain of muscle(s) and tendon(s) of the rotator cuff of left shoulder, initial encounter (3) Neutrophilic leukocytosis Priority: Secondary Status: Acute (4) Elevated transaminase level Priority: Secondary Status: Resolved (5) Anemia Priority: Secondary Status: Acute Qualifiers: Anemia type: unspecified type Qualified Code(s): D64.9 - Anemia, unspecified (6) Conjunctivitis Priority: Secondary Status: Resolved Qualifiers: Conjunctivitis type: unspecified Laterality: bilateral Qualified Code(s): H10.9 - Unspecified conjunctivitis (7) Physical deconditioning Priority: Secondary Status: Chronic (8) Hyperlipidemia Priority: Secondary Status: Chronic Qualifiers: Hyperlipidemia type: unspecified Qualified Code(s): E78.5 - Hyperlipidemia, unspecified Hospital course: Mr. Pastrana is a 73 year old male who was hospitalized in [facility] acute-care September 29- after presenting to ER following being found on the floor at [facility]. Evaluation showed probable additional metastatic lesions (less likely infarcts) involving the marj and bilateral cerebral hemispheres. Left rotator cuff tear was noted on MRI. He was discharged to swing bed for ongoing intervention. He continued to receive PT/OT in swing bed. He made little overall progress. Follow up lab work showed normalization of LFTs. Hemoglobin was stable at 9.9 on October 09. Conjunctivitis resolved with use of TobraDex. Right parotid area returned to normal size and he remained off antibiotics after October 07. On the morning of October 17 he developed increased dyspnea requiring nonrebreather mask to maintain satisfactory oxygenation. Contact was made with his [facility] and his power of appointment scheduler. It was agreed he would be discharged to [facility] hospice services and remain in the hospital. Expected life expectancy uncertain but possibly not exceeding 7-10 days. - Time Spent with Patient Total time spent providing and/or coordinating discharge services: - Discharge Medications Prescriptions: New LORazepam Oral Conc [Ativan Oral Conc] 2 mg PO Q2H PRN 7 Days #120 mls PRN Reason: Agitation MORPHINE SUL Oral CONC [Roxanol Oral Conc] 10 mg PO Q1H PRN 7 Days #120 ml PRN Reason: Pain Continued Oxygen 1 each .ROUTE AD Albuterol Neb [Proventil Neb] 2.5 mg IH Q6H PRN PRN Reason: Dyspnea Discontinued traZODone [TraZODone] 50 mg PO HS Simvastatin [Zocor] 40 mg PO HS Donepezil [Aricept] 10 mg PO HS Cyanocobalamin (B-12) [Vitamin B12] 500 mcg PO DAILY Ipratropium/Albuterol Neb [Duoneb] 3 ml IH Q6HR Perphenazine 4 mg PO BID Docusate [Colace] 100 mg PO BID PRN PRN Reason: Constipation Cholecalciferol (Vitamin D3) [Vitamin D3] 2,000 unit PO DAILY Benzonatate [Tessalon] 100 mg PO BID PRN PRN Reason: Cough Omeprazole [PriLOSEC] 20 mg PO BIDAC #30 cap Ondansetron HCl [Zofran] 4 mg PO Q4H PRN #30 tablet PRN Reason: Nausea Prochlorperazine Maleate [Compazine] 10 mg PO Q6H PRN #30 tablet PRN Reason: Nausea Phenazopyridine [Pyridium] 100 mg PO TID #90 tablet Tiotropium [Spiriva] 2 puff IH DAILY GuaiFENesin/Dextromethorphan [Pecgen Dmx 125-15 mg/5 ml Liq] 10 ml PO BID PRN PRN Reason: Cough Calcium Carbonate [Antacid] 400 mg PO DAILY Doxazosin Mesylate [Cardura] 2 mg PO HS Oxycodone HCl/Acetaminophen [Percocet 5-325 mg Tablet] 1 each PO Q4-6H PRN PRN Reason: Pain guaiFENesin [Guaifenesin] 400 mg PO Q8H PRN PRN Reason: Congestion Aspirin Enteric Coated [Aspirin EC] 81 mg PO Q48H tablet. cefTRIAXone [Rocephin] 1,000 mg IVP Q24H vial Lactobacillus [Culturelle] 1 each PO BID cap.sprink Tobramycin/Dex Opth DROPS [Tobradex Opth Drops] 1 drop RIGHT EYE Q8H bottle Tobramycin/Dex Opth DROPS [Tobradex Opth Drops] 1 drop LEFT EYE Q8H bottle Home Medications: Oxygen 1 each .ROUTE AD 03/01/18 [History] Albuterol Neb [Proventil Neb] 2.5 mg IH Q6H PRN 09/29/18 [History] LORazepam Oral Conc [Ativan Oral Conc] 2 mg PO Q2H PRN 7 Days #120 mls 10/17/18 [Rx] MORPHINE SUL Oral CONC [Roxanol Oral Conc] 10 mg PO Q1H PRN 7 Days #120 ml 10/17/18 [Rx] Allergies/Adverse Reactions: Allergy/AdvReac Type Severity Reaction Status Date / Time No Known Allergies Allergy Verified 07/03/18 10:25 Date of admission: 10/02/18 14:08 Primary care physician: PCP NONE Consults: 10/02/18 14:11 Consult to Occupational Therapy [CONS] Routine Comment: Evaluate, develop and implement POC Reason for Consult: weakness Does patient have active BEDREST order?: No Is patient medically & hemodynamically stable?: Yes Patient assessed for mobility or mobilized this visit?: No Consult to Physical Therapy [CONS] Routine Comment: Evaluate, develop and implement POC Reason for Consult: weakness Does patient have active BEDREST order?: No Is patient medically & hemodynamically stable?: Yes Patient assessed for mobility or mobilized this visit?: No Consult to Speech Therapy [CONS] Routine Comment: Evaluate, develop and implement POC Reason for Consult: Acute neuro deficit- CVA vs. mets --dysphagia Call Completed: No 10/02/18 14:14 Consult to Software Configuration Analyst [CONS] Routine Reason for SW Consult: discharge planning - Constitutional Vitals: Temp Pulse Resp BP Pulse Ox 99.7 F H 95 22 100/62 91 10/17/18 12:07 10/17/18 12:07 10/17/18 12:07 10/17/18 12:07 10/17/18 12:07 - Patient Status Disposition: Hospice - Medical Facility - Discharge Instructions
[2018-10-17] MEDS ORDERED: *HR* LORazepam Oral Conc 2 MG/ML PO PRN (15:19)
[2018-10-17] MEDS ORDERED: MORPHINE SUL Oral CONC 10 MG/0.5 ML ORAL.SYG SL PRN (15:20)
[2018-10-17] MEDS ORDERED: Acetaminophen 650 MG RECTAL SUPP RC PRN (15:22)
[2018-10-17] MEDS ORDERED: Atropine 1% Opth Drops 100 DROP/5 ML BOTTLE SL PRN (19:11)
[2018-10-17 19:48] VITALS: BP 95/57
== END 2018-10-17 19:59 | disposition hospice, inpatient (51) | DRG 55 ==
LOC: INPPIK 14:08
PROVIDERS: ADMIT Internal Medicine; ATTEND Internal Medicine

== ENCOUNTER 2018-10-17 20:08 | Inpatient (IN) ==
[2018-10-18] MEDS ORDERED: Acetaminophen 325 MG TABLET PO PRN
[2018-10-18] MEDS ORDERED: Acetaminophen 650 MG RECTAL SUPP RC PRN
[2018-10-18] MEDS ORDERED: Albuterol 2.5 MG/3 ML NEBULIZER IH PRN (04:32)
[2018-10-18] MEDS: Atropine 1% Opth Drops 100 DROP/5 ML BOTTLE SL PRN ×4 (04:47→13:41)
[2018-10-18] MEDS: MORPHINE SUL Oral CONC 10 MG/0.5 ML ORAL.SYG PO PRN ×3 (04:48→10:15)
[2018-10-18 07:03] VITALS: BP 111/66
[2018-10-18] MEDS: *HR* LORazepam Oral Conc 2 MG/ML SL PRN ×2 (08:35→13:40)
--- NOTE | 2018-10-18 18:52 | Internal Med Progress Note ---
Date of Encounter: 10/18/18 Time of Encounter: 18:50 - Subjective Interval history: He was discharged from swing bed to [facility] hospice on 10/17/2018. [employer] was ordered with discontinuation of other routine medications. At 1504 on 10/18/2018 he was found without pulse or respirations and was pronounced . No resuscitative efforts were done as per advanced directives. - Constitutional Vitals: Temp Pulse Resp BP Pulse Ox 101.3 F H 119 28 111/66 92 10/18/18 06:57 10/18/18 06:57 10/18/18 06:57 10/18/18 06:57 10/18/18 06:57 Consult Discharge Plan - Plan Referrals: NONE,PCP [Primary Care Provider] - 1 week
== END 2018-10-18 17:15 | disposition expired | DRG 92 ==
LOC: INPPIK 20:17
PROVIDERS: ADMIT Internal Medicine; ATTEND Internal Medicine